=== PATIENT | male | born 1955 | race Caucasian/White ===

== ENCOUNTER → 2019-10-06 14:56 | Outpatient (BNVA) | payer MEDICARE, MEDICAID, SELFPAY | PROVIDERS: PCP Family Medicine; Referring Provider Family Medicine; Visit Provider Nurse Practitioner Gerontology | DX: N50.3 Cyst of epididymis (principal) | CPT/HCPCS: 99203; 99214 ==

== ENCOUNTER 2020-12-01 21:00 | Outpatient (REF) | payer MEDICARE, SELFPAY ==
[2020-12-03 14:06] LABS: COVID-19 RT-PCR UVMMC Result Negative (Negative)
== END 2020-12-01 21:01 | disposition home or self-care (01) ==
LOC: NCHCN 21:00
PROVIDERS: PCP Family Medicine; Visit Provider Family Medicine
DX: Z20.822 Contact with and (suspected) exposure to COVID-19 (principal); R05 Cough
CPT/HCPCS: U0003

== ENCOUNTER 2021-03-30 02:59 | Outpatient (CLI) | payer MEDICARE, MEDICAID, SELFPAY ==
--- NOTE | 2021-03-30 08:30 | DI.MRI_ITS ---
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 TECHNIQUE: Multiplanar multisequence MRI of the Lumbar spine was performed. COMPARISON: CR LUMBAR SPINE COMPLETE from 01/09/2013 FINDINGS: X-rays 01/09/2013 were reviewed. There are no more recent radiographs of the lumbar spine available time this MRI interpretation. Conus medullaris is at normal level. There is no evidence of conus mass nor subjacent clumping of in trathecal nerve roots to suggest arachnoiditis. The distal thecal sac and slightly higher than typic al; in this patient the distal thecal sac and XXXX at the L5-S1 level. There is no evidence of Tarlo v intra sacral cysts within the sacral canal. Bones:There is a prominent area of concerning signal abnormality in the right side of upper sacrum in volving S1 and S2 levels, concerning for neoplastic disease T1 hypointense and bright on STIR images. This some is not associated with extension into the presacral tissues nor obvious encroachment upon the sacral canal at this time. This is contiguous with the right sacroiliac joint. In addition, th ere are other smaller foci of concerning signal abnormality in the pelvis, specifically in the left i liac bone, these also suspicious (but smaller). There is also Schmorl's node invagination in the superior endplate of L3, anteriorly. This exhibits some surrounding bone edema. With respect to the individual disc levels... T12-L1: Unremarkable L1-2: Normal disc height and signal. No disc herniation nor central canal stenosis.No foraminal steno sis L2-3: Normal disc height. No disc herniation nor central canal stenosis.No foraminal stenosis.No face t arthropathy. L3-4: Normal disc height. No disc herniation or central canal stenosis.No foraminal stenosis.No face t arthropathy. L4-5: Normal disc height and signal. No significant disc herniation or central spinal canal stenosis . No foraminal stenosis. No obvious degenerative changes in the facet joints L5-S1: Moderate decreased disc height and signal. Modic type 2 sub endplate fatty marrow changes on both sides of this disc space. There is posterior annular bulging at this level, extending into the floor of the exiting neural fora kaye bilaterally, more so on left side. There is mild left-sided foraminal stenosis due to the verti yobany height loss of the disc, Peck bulging into the floor of the exiting neural foramen and moderat e degenerative changes in the ipsilateral left facet joint. On the right side of this disc space the re is no significant foraminal stenosis and less degenerative change in the right facet joint. Soft tissues: paraspinal soft tissues appear unremarkable. IMPRESSION: 1. Main findings here are in the right-side of the sacrum where there is a prominent area of relativ quentin well-defined signal abnormality measuring approximately 3.7 cm wide by 3.7 cm craniocaudal by 4 c m AP, this at the S1 and S2 levels and suspicious for neoplastic disease. There also smaller lesions in the left hemipelvis which are also suspicious, these exhibiting average size of 1.3 cm. 2. Intervertebral disc space findings at L5-S1 level as described above. DATA REPOSITORY:
== END 2021-03-30 03:19 ==
PROVIDERS: PCP Family Medicine; Visit Provider Family Medicine
DX: M54.31 Sciatica, right side (principal)
CPT/HCPCS: 72148

== ENCOUNTER 2021-04-12 01:39 | Outpatient (CLI) | payer MEDICARE, MEDICAID, SELFPAY ==
[2021-04-12 08:45] LABS: Abs Immature Grans 0.08 10^3/uL (0.0-0.06); Absolute Basophil Count 0.02 10^3/uL (0.0-0.2); Absolute Eosinophil Count 0.11 10^3/uL (0.0-0.7); Absolute Monocyte Count 1.03 10^3/uL (0.1-0.8); Absolute Neutrophil Count 7.25 10^3/uL (1.2-6.7); Basophils % 0.2; Eosinophils % 1.1; HCT 45.7 % (40.0-50.0); HGB 14.6 g/dL (13.5-17.5); Immature Grans % 0.8; Lymphocytes % 13.3; MCH 29.1 pg (27.0-33.0); MCHC 31.9 % (32.0-36.0); Monocytes % 10.5; Neutrophils % 74.1; Nucleated RBC 0 %; Platelet Count 204 10^3/uL (130-400); RBC 5.02 10^6/uL (4.36-5.78); RDW 13.4 % (11.8-14.1); RDW-SD 45.1 fL; WBC 9.79 10^3/uL (4.4-10.8)
[2021-04-12 09:01] LABS: ALT 24 U/L (16-63); AST 11 U/L (15-37); Albumin 4.1 g/dL (3.4-5.0); Alkaline Phosphatase 107 U/L (46-116); Anion Gap 11.1 mmol/L (3-11); BUN 20 mg/dL (7-18); Bilirubin, Total 0.5 mg/dL (0.2-1.0); CO2 24.9 mmol/L (21.0-32.0); CREATININE 1.1 mg/dL (0.70-1.30); Chloride 105 mmol/L (98-107); Glucose 99 mg/dL (74-106); Potassium 4.3 mmol/L (3.5-5.1); Sodium 141 mmol/L (136-145); Total Protein 7.9 g/dL (6.4-8.2)
[2021-04-12] MEDS: Normal Saline - Diluent 50 ML VIAL IV (10:03)
[2021-04-12] MEDS: Omnipaque 350 MG/ML 100 ML BTL IJ (10:13)
--- NOTE | 2021-04-12 10:15 | DI.CT_ITS ---
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 TECHNIQUE: Imaging Protocol: Axial computed tomography images with coronal and sagittal reformatted images were created and reviewed CONTRAST MATERIAL: Intravenous: Omnipaque 350 Contrast volume:100 ml Oral: Yes COMPARISON: No exams were available for comparison FINDINGS: CHEST: LUNGS: There is a very large mass in the right upper lobe and mediastinum with significant involvemen t of the right mainstem bronchus and this mass extends caudally into the right lower lobe and with mu ltiple additional lesions in the right lower lobe, the largest of these measuring 3 by 2.5 cm. This large mass extends outward from the right hilum to the pleural surface where it is intimately related to the chest wall but not associated with obvious rib destruction nor pleural effusion. There are m ultiple small probable metastatic nodules in the opposite-left lung, these measuring up to 9 millimet er diameter. No pleural effusions seen on either side. The left mainstem bronchus is patent. MEDIASTINUM: There is extensive contiguous involvement of the right hilum and right side of the media stinum with extension into and extensive adenopathy in the subcarinal region. Also involvement of sherron th right and left paratracheal regions and also contiguous involvement of the aortopulmonic window. Anterior mediastinal retrosternal fat is clear. There is no supraclavicular nor axillary adenopathy. CARDIAC: Heart size is normal. There is a small pericardial effusion. Maximum thickness is 1 cm.Johnathon iber of the thoracic aorta is within normal limits. OSSEOUS: There is no rib destruction.However, there appears to be involvement of T2 vertebral body. No spinal canal involvement.. ABDOMEN: There is no ascites. LIVER: There are few small benign-appearing hypodensities in the liver, the largest measuring 5 maryellen meters. These have more the appearance of benign cysts than metastatic lesions. There is no dilatat ion of intrahepatic ducts. GALLBLADDER/BILIARY: No obvious gallbladder pathology. CBD is not dilated. PANCREAS: No evidence of pancreatic mass nor dilatation of the pancreatic duct. SPLEEN: Spleen is not enlarged. There are no intrasplenic lesions. Splenic and portal veins are gibbs nt. ADRENALS: There is a mass in the left adrenal gland which measures 2.3 by 1.8 cm. Smaller nodule is seen at the genu of the opposite-right adrenal gland measuring 10 x 9 millimeters. These findings ar e suspicious for metastatic disease given the findings in the chest. KIDNEYS: No calculi nor hydronephrosis. No solid renal masses. No cysts evident. ABDOMINAL AORTA: Calcified but not enlarged. LYMPH NODES: There is no retroperitoneal nor paraaortic adenopathy. ABDOMINAL WALL: No evidence of significant anterior abdominal wall hernia. GI: There is no evidence of bowel obstruction. PELVIS: LYMPH NODES: There is no intrapelvic nor inguinal adenopathy. GI: No evidence of appendicitis.No evidence of sigmoid diverticulitis. URINARY BLADDER: No calculi nor masses evident REPRODUCTIVE: Prostate gland mildly enlarged and calcified. No obturator adenopathy. OSSEOUS: There is a lytic mass involving the right side of the sacrum. There is cortical disruption by this malignant mass with some extension into the right side of the sacral canal. There does not appear to be involvement of lumbar vertebral bodies. IMPRESSION: 1. There is a very large malignant appearing mass in the right lung extending from the hilum-mediasti num out to the right upper lobe pleural surface and with contiguous involvement of the mediastinum an d subcarinal region as described above; extending across the mediastinum to the aortopulmonic window on the left side. Mass occupies a large part of the right mainstem bronchus which is probably origin site. There also other spiculated masses in the right lung as described above and there also smalle r non spiculated sub cm nodules in both lungs.. There are no pleural effusions. 2. There is a 2.3 x 1.8 cm mass in the left adrenal gland which is probably metastatic, given the fin dings in the chest a smaller nodule is seen in the opposite-right adrenal gland. 3. There is a small pericardial effusion. Maximum thickness 9-10 millimeters. Heart size itself is normal. 4. There is a large lytic mass in the right side of the sacrum with breech of the cortex and involvem ent of the right-side of the sacral canal. There also appears to be metastatic involvement of the T2 vertebral body, but without involvement of the spinal canal at this level at this time RADIATION DOSE DELIVERED: 1,583.83mGy.cm Total DLP DATA REPOSITORY: All CT scans at this facility are submitted to the National Radiology Data Registry (NRDR) Dose Index Registry (DIR) with the [employer] (A[employer]). RADIATION OPTIMIZATION: All CT scans at this facility use at least one of these dose optimization te chniques: automated exposure control; mA and/or kV adjustment per patient size (includes targeted exa ms where dose is matched to clinical indication); or iterative reconstruction.
[2021-04-12 16:44] LABS: PSA, Diagnostic 5.9 ng/mL (0.0-4.5)
[2021-04-12 19:55] LABS: Calculated LDL 123 mg/dL (<100); Cholesterol 186 mg/dL (<200); HDL Cholesterol 32 mg/dL (40-60); Triglyceride 157 mg/dL (<150)
== END 2021-04-12 01:59 ==
PROVIDERS: PCP Family Medicine; Visit Provider Family Medicine
DX: Z01.812 Encounter for preprocedural laboratory examination (principal); D48.9 Neoplasm of uncertain behavior, unspecified; N40.0 Benign prostatic hyperplasia without lower urinary tract symptoms; R91.8 Other nonspecific abnormal finding of lung field; E27.8 Other specified disorders of adrenal gland; I31.3 Pericardial effusion (noninflammatory); M53.3 Sacrococcygeal disorders, not elsewhere classified
CPT/HCPCS: 74177; 80053; 80061; 71260; 82565; 84153; 85025; J3490

== ENCOUNTER 2021-04-13 12:32 | Emergency (ER) | payer MEDICARE, MEDICAID, SELFPAY ==
[2021-04-13] VITALS (47 sets, daily range): BP systolic 91–178; BP diastolic 52–124; PULSE 80–124; RESP 16–39; TEMP 36.4; O2SAT 90–100
--- NOTE | 2021-04-13 12:45 | RT.EKG_ITS ---
APPROVED REPORT Exam: Resting ECG Reason for Exam: sob Patient Location: E HR:114 bpm ECG Measurements Heart Rate 114 AXIS OK 173 P 55 QRSd 82 QRS 12 QT 330 T 36 QTc 454 Conclusion Sinus tachycardia...rate> 99 Probable left atrial enlargement...P >50mS, <-0.10mV V1. No STEMI. I have reviewed and interpreted ECG and agree with software generated interpretation.
--- NOTE | 2021-04-13 12:45 | DI.RAD_ITS ---
Exam(s) XR PORTABLE CHEST AP EXAM: XR PORTABLE CHEST AP CLINICAL HISTORY: hemoptysis. TECHNIQUE: 2D digital imaging was performed. COMPARISON: CT CT CHEST/ABD/PEL W from 04/12/2021 FINDINGS: Heart size is upper normal. Please note the yesterday's CT scan revealed a small pericardial effusio n, in addition to other abnormal findings. There is a large mass in the right upper lobe which corresponds to the large mass seen on yesterday's chest x-ray. Also other densities lower down in the right lung. No pleural effusion. No pneumotho rax. The opposite-left lung is clear with the exception of a small nodule behind the left side of th e heart which is within the posterior basal segment of the left lower lobe, as seen on yesterday's ch est CT scan. There is no pleural fluid on either side. IMPRESSION: Large malignant appearing right lung mass which extends from the mediastinum out to the pleural surfa ce. No associated pleural effusion or rib destruction. Please refer to yesterday's CT scan report DATA REPOSITORY: RADIATION DOSE DELIVERED: All CT scans at this facility use at least one of these dose optimization techniques: automated exposure control; mA and/or kV adjustment per patient size (includes targeted e xams where dose is matched to clinical indication); or iterative reconstruction.
[2021-04-13] MEDS: Normal Saline 1,000 ML 1000 ML IV (12:50)
[2021-04-13 13:06] LABS: Abs Immature Grans 0.13 10^3/uL (0.0-0.06); Absolute Basophil Count 0.03 10^3/uL (0.0-0.2); Absolute Eosinophil Count 0.08 10^3/uL (0.0-0.7); Absolute Lymphocyte Count 1.46 10^3/uL (1.2-3.4); Absolute Monocyte Count 1.09 10^3/uL (0.1-0.8); Absolute Neutrophil Count 10.39 10^3/uL (1.2-6.7); Basophils % 0.2; Eosinophils % 0.6; HCT 45.5 % (40.0-50.0); HGB 14.9 g/dL (13.5-17.5); Lymphocytes % 11.1; MCH 29.6 pg (27.0-33.0); MCHC 32.7 % (32.0-36.0); MCV 90.3 fL (80-95); Monocytes % 8.3; Neutrophils % 78.8; Nucleated RBC 0 %; Platelet Count 256 10^3/uL (130-400); RBC 5.04 10^6/uL (4.36-5.78); RDW 13.4 % (11.8-14.1); RDW-SD 44.4 fL; WBC 13.19 10^3/uL (4.4-10.8)
[2021-04-13 13:17] LABS: Prothrombin Time 10.5 sec (9.3-11.0)
[2021-04-13 13:26] LABS: ALT 25 U/L (16-63); AST 9 U/L (15-37); Albumin 4.1 g/dL (3.4-5.0); Alkaline Phosphatase 113 U/L (46-116); Anion Gap 14.5 mmol/L (3-11); BUN 17 mg/dL (7-18); Bilirubin, Total 0.6 mg/dL (0.2-1.0); CO2 22.5 mmol/L (21.0-32.0); CREATININE 0.9 mg/dL (0.70-1.30); Calcium 9.8 mg/dL (8.5-10.1); Chloride 101 mmol/L (98-107); Glucose 105 mg/dL (74-106); NT-proBNP 59 pg/mL (<300); Potassium 4.2 mmol/L (3.5-5.1); Sodium 138 mmol/L (136-145); Total Protein 7.9 g/dL (6.4-8.2); Troponin I < 0.05 ng/mL (<0.06)
--- NOTE | 2021-04-13 15:15 | ED.GENADUL_ITS ---
Discharge Plan Discharge Details Chief Complaint: GenMedical Primary Care Provider: Rossana Grossman ED Provider: Arminda Jasmine Home Meds and New Rx's Prescriptions: No Action oxycodone 15 mg tablet 15 mg PO TID PRN PRNRF: 0 diclofenac sodium 50 mg tablet,delayed release (DR/EC) 50 mg PO TID RF: 0 tramadol 50 mg tablet 100 mg PO BID RF: 0 albuterol sulfate 90 mcg/actuation HFA aerosol inhaler 2 inh INHALATION Q4H PRN PRNRF: 0 cyclobenzaprine 10 mg tablet 10 mg PO TID PRN PRNRF: 0 Flovent HFA 110 mcg/actuation Hfa Aerosol Inhaler 2 puff INHALATION BID RF: 0 Discharge Data Discharge Date/Time-TO BE ENTERED AT DEPARTURE: 04/13/21 17:16 Medical Decision Making <DANNA Chi - Last Filed: 04/14/21 20:52> Patient experiencing hemoptysis with a large mediastinal mass in the right bronchus Initially in respiratory distress with pulse 122, oxygen saturation 89%, tachypneic between 38 and 40 Initiated TXA, patient received 500 and an additional 500 Hemoptysis with mildly improved Chest x-ray with discussed with radiologist, Dr. Mei there is no evidence of pneumothorax, CT scans from yesterday were reviewed with large mediastinal mass radiology interpretation Patient received 1 L of normal saline, after respiratory consultation, patient received 2 mg of morphine which patient actually tolerated well and subsequent dose of 3 mg of nebulized morphine which significantly improved patient's symptoms Long discussion with patient's daughter and sister in room and patient would like to be DNR/DNI status He is alert, oriented, of decisional capacity at time of this evaluation and daughter and sister were both in room Case was discussed with initially [facility] who is unable to accept this patient in transfer Case was then discussed with DDM, Dr. Kramer pulmonology who has accepted patient in transfer Patient received a total of milligram of nebulized morphine and 2 mg of IV morphine, his breathing has improved He received a total of 1 g of TXA Initially patient was listed as being on aspirin however after his medication were reconciled, he is not reportedly taking baby aspirin and therefore desmopressin was held Patient received bed notification at approximately 1500 and EMS will be called to transport patient I did consider pulmonary embolism pneumothorax, however radiologist did not see obvious pneumothorax on chest x-ray Patient also had a CT scan with contrast yesterday, no evidence of large PE with good opacification after reviewing the films with our radiologist welder explosion today Hemoglobin and hematocrit are reassuringly normal I did consider Covid, however patient is vaccinated and he denies any exposures recently signed out to Arminda Jasmine pending transfer [facility] Medical Records Medical records reviewed: Yes I reviewed the patient's medical records. Lab Data Lab results reviewed: Yes I reviewed the patient's lab results. ECG Data Prior ECG tracings: available for review <Arminda Jasmine - Last Filed: 04/13/21 17:47> 1619: Care assumed from provider (DANNA Chi) please see her initial HPI, and PE, discussed patient details and case and pending workup and disposition. Patient is hemodynamically stable, and alert and oriented. Awaiting transfer to [facility]. At this time patient denying pain family at bedside. He has no complaints she just finished a nebulized morphine does 3 mg proximally 35 minutes ago. I did verify with pain medicine that they are able to review and nebulized morphine dose that patient needed. This seems to improve his pain more than the IV dose. 1700: EMS here for transport patient remained hemodynamically stable alert and oriented throughout the remainder stay. HPI <DANNA Chi - Last Filed: 04/14/21 20:52> HPI physical exam General Mode of arrival: ambulatory . Date/Time Provider Initiated Documentation: 04/13/21 12:38 . Limitations to Documentation: no limitations . Information obtained by: patient . HPI Narrative: This 65-year-old gentleman with past medical history of COPD and tobacco use with recent diagnosis of large mediastinal mass presents with hemoptysis. He states he had some intermittent hemoptysis for the past month. He today states that today he has had approximately 8 episodes of hemoptysis that were approximately 1 tablespoon with clots. He states he feels lightheaded and weak. He denies any chest pain. He does state that he feels short of breath. He denies history of anticoagulation or+ Related Data Home Medications Medication Instructions Recorded Confirmed albuterol sulfate 2 inh INHALATION Q4H PRN PRN 04/13/21 04/13/21 cyclobenzaprine 10 mg PO TID PRN PRN 04/13/21 04/13/21 diclofenac sodium 50 mg PO TID 04/13/21 04/13/21 fluticasone propionate [Flovent 2 puff INHALATION BID 04/13/21 04/13/21 HFA] oxycodone 15 mg PO TID PRN PRN 04/13/21 04/13/21 tramadol 100 mg PO BID 04/13/21 04/13/21 Allergies Allergy/AdvReac Type Severity Reaction Status Date / Time codeine AdvReac Unknown SEVERE Unverified 04/13/21 12:50 ABDOMINAL PAIN General Stated Complaint: GenMedical RICCI: 2 <Arminda Jasmine - Last Filed: 04/13/21 17:47> HPI physical exam Review of Systems <DANNA Chi - Last Filed: 04/14/21 20:52> All systems reviewed & are unremarkable except as noted in HPI and below PFSH <DANNA Chi - Last Filed: 04/14/21 20:52> Medical History (Updated 08/05/19 @ 09:41 by Elizabeth Macdonald) BPH (benign prostatic hyperplasia) Cyst Depression Irritable bowel syndrome with diarrhea Osteoarthritis Teeth missing Tubular adenoma of colon Surgical History (Updated 08/01/16 @ 09:08 by Ofe Garcia) Colonoscopy - IV Sedation (07/27/16) Family History Mother No problems noted. Father No problems noted. Sister No problems noted. Sister No problems noted. Sister Personal history of malignant neoplasm Sister No problems noted. Brother No problems noted. Brother Personal history of malignant neoplasm Brother No problems noted. Brother No problems noted. Brother No problems noted. Son No problems noted. Social History Smoking/Tobacco Use Status: Former Tobacco Use Smoking risk assessment performed?: Yes Alcohol Intake: former Drug use: Never Do you feel safe at home: Yes Do you feel safe in your relationship?: Yes Exam <DANNA Chi - Last Filed: 04/14/21 20:52> Const General: cooperative and ill appearing HENMT Throat: uvula midline Other: Blood noted in oropharynx, maintaining secretions Eyes Sclera: sclerae normal Neck Other: No stridor Resp Auscultation: diminished lung sounds Other: Tachypnea, rhonchi Cardio Rate: tachycardic Rhythm: regular rhythm GI Inspection: normal to inspection Skin General skin exam: no rashes or lesions noted and no pallor Neuro General: patient alert and patient oriented x3 Extrem Other: distal pulses intact Course <DANNA Chi - Last Filed: 04/14/21 20:52> Vital Signs Vital signs: Vital Signs Temperature 36.4 C L 04/13/21 12:37 Pulse 122 H 04/13/21 12:37 Respiratory Rate 29 H 04/13/21 12:37 Blood Pressure 178/76 H 04/13/21 12:37 Pulse Oximetry 92 04/13/21 12:37 Temperature 36.4 C L 04/13/21 12:37 Temperature Source Temporal Artery Scan 04/13/21 12:37 Pulse 122 H 04/13/21 12:37 Pulse 117 H 04/13/21 13:20 Respiratory Rate 30 H 04/13/21 14:08 Respiratory Effort 04/13/21 14:08 Respiratory Depth Normal 04/13/21 14:08 Respiratory Pattern Normal 04/13/21 14:08 Blood Pressure 178/76 H 04/13/21 12:37 Blood Pressure Position Supine 04/13/21 12:37 Pulse Oximetry 93 04/13/21 13:20 Oxygen Delivery Method Nasal Cannula 04/13/21 12:45 Oxygen Flow Rate 2 04/13/21 12:45 Pain Level 0 04/13/21 12:37 Lab/Test Results Lab/Test Results: Laboratory Tests Range/Units 04/13/21 04/13/21 04/13/21 12:50 12:50 12:50 WBC (4.4-10.8) 10^3/uL RBC (4.36-5.78) 10^6/uL Hgb (13.5-17.5) g/dL Hct (40.0-50.0) % MCV (80-95) fL MCH (27.0-33.0) pg MCHC (32.0-36.0) % RDW (11.8-14.1) % Plt Count (130-400) 10^3/uL MPV (8.0-11.0) fL Immature Gran % Neutrophils % Lymphocytes % Monocytes % Eosinophils % Basophils % Nucleated RBC % % Absolute Neutrophils (1.2-6.7) 10^3/uL Absolute Lymphocytes (1.2-3.4) 10^3/uL Absolute Monocytes (0.1-0.8) 10^3/uL Absolute Eosinophils (0.0-0.7) 10^3/uL Absolute Basophils (0.0-0.2) 10^3/uL PT (9.3-11.0) sec 10.5 INR (0.9-1.1) 1.0 Sodium (136-145) mmol/L 138 Potassium (3.5-5.1) mmol/L 4.2 Chloride (98-107) mmol/L 101 Carbon Dioxide (21.0-32.0) mmol/L 22.5 Anion Gap (3-11) mmol/L 14.5 H BUN (7-18) mg/dL 17 Creatinine (0.70-1.30) mg/dL 0.9 Estimated GFR/1.73 m2 (mL/min/1.73m2) >= 60.00 Glucose (74-106) mg/dL 105 Calcium (8.5-10.1) mg/dL 9.8 Total Bilirubin (0.2-1.0) mg/dL 0.6 AST (15-37) U/L 9 L ALT (16-63) U/L 25 Alkaline Phosphatase (46-116) U/L 113 Troponin I (<0.06) ng/mL < 0.05 NT-Pro-B Natriuret Pep (<300) pg/mL 59 Total Protein (6.4-8.2) g/dL 7.9 Albumin (3.4-5.0) g/dL 4.1 Patient ABO/Rh A Negative Antibody Screen NEGATIVE Range/Units 04/13/21 12:50 WBC (4.4-10.8) 10^3/uL 13.19 H RBC (4.36-5.78) 10^6/uL 5.04 Hgb (13.5-17.5) g/dL 14.9 Hct (40.0-50.0) % 45.5 MCV (80-95) fL 90.3 MCH (27.0-33.0) pg 29.6 MCHC (32.0-36.0) % 32.7 RDW (11.8-14.1) % 13.4 Plt Count (130-400) 10^3/uL 256 MPV (8.0-11.0) fL 10.0 Immature Gran % 1.0 Neutrophils % 78.8 Lymphocytes % 11.1 Monocytes % 8.3 Eosinophils % 0.6 Basophils % 0.2 Nucleated RBC % % 0 Absolute Neutrophils (1.2-6.7) 10^3/uL 10.39 H Absolute Lymphocytes (1.2-3.4) 10^3/uL 1.46 Absolute Monocytes (0.1-0.8) 10^3/uL 1.09 H Absolute Eosinophils (0.0-0.7) 10^3/uL 0.08 Absolute Basophils (0.0-0.2) 10^3/uL 0.03 PT (9.3-11.0) sec INR (0.9-1.1) Sodium (136-145) mmol/L Potassium (3.5-5.1) mmol/L Chloride (98-107) mmol/L Carbon Dioxide (21.0-32.0) mmol/L Anion Gap (3-11) mmol/L BUN (7-18) mg/dL Creatinine (0.70-1.30) mg/dL Estimated GFR/1.73 m2 (mL/min/1.73m2) Glucose (74-106) mg/dL Calcium (8.5-10.1) mg/dL Total Bilirubin (0.2-1.0) mg/dL AST (15-37) U/L ALT (16-63) U/L Alkaline Phosphatase (46-116) U/L Troponin I (<0.06) ng/mL NT-Pro-B Natriuret Pep (<300) pg/mL Total Protein (6.4-8.2) g/dL Albumin (3.4-5.0) g/dL Patient ABO/Rh Antibody Screen Critical Care Time <DANNA Chi - Last Filed: 04/14/21 20:52> Critical Care Time Critical Care Time: Yes Total Critical Care Time: 60 Attestation: Telemetry monitoring, IV fluids, TXA, nebulized morphine, transfer to [facility] Sign Out <DANNA Chi - Last Filed: 04/14/21 20:52> Sign Out Data: Sign Out Comment: pending [facility] transfer Last updated by Di Garnica PA at 04/13/21 16:16
[2021-04-13] MEDS: Ondansetron 4 MG/2 ML VIAL IVP (15:48)
--- NOTE | 2021-04-13 16:58 | NUR.NOTE ---
txa given as nebulizer in 2 doses. Nursing Note:
== END 2021-04-13 17:16 ==
PROVIDERS: Physician Assistant; Emergency Provider Registered Nurse Emergency; PCP Family Medicine
DX: R04.2 Hemoptysis (principal); R06.03 Acute respiratory distress
CPT/HCPCS: 36415; 80053; 86850; 86900; 86901; 93005; 96361; 96365; 96366; 96375; 96376; 99291; 71045; 83880; 84484; 85025; 85610; 93010; J2405; J2597

== ENCOUNTER 2021-05-02 17:59 | Inpatient (IN) | payer MEDICARE, MEDICAID, SELFPAY ==
[2021-05-02] VITALS (35 sets, daily range): BP systolic 89–117; BP diastolic 44–71; PULSE 121–146; RESP 4–44; TEMP 36.8–36.9; O2SAT 92–98
--- NOTE | 2021-05-02 18:00 | RT.EKG_ITS ---
APPROVED REPORT Exam: Resting ECG Reason for Exam: increased difficulty breathing Patient Location: E HR:135 bpm ECG Measurements Heart Rate 135 AXIS VA 146 P 64 QRSd 77 QRS 28 QT 296 T 14 QTc 444 Conclusion Sinus tachycardia...rate> 99 Probable left atrial enlargement...P >50mS, <-0.10mV V1
--- NOTE | 2021-05-02 18:00 | DI.RAD_ITS ---
Exam(s) XR PORTABLE CHEST AP EXAM: XR PORTABLE CHEST AP CLINICAL HISTORY: SOB. TECHNIQUE: 2D digital imaging was performed. COMPARISON: CR XR CHEST PORTABLE 1 VIEW from 04/24/2021 FINDINGS: Heart size is unchanged. Left lung remains clear. There is persistent infiltrate in the right lower lobe and right upper lobe and volume loss in the right upper lobe noted. . No pleural effusions. No pneumothorax. IMPRESSION: Volume loss and opacification right upper lobe suspicious for central neoplasm. Chest CT scan recomm ended. There is also infiltrate in the right lung base.Left lung appears clear. There are no pleural effusions. DATA REPOSITORY: RADIATION DOSE DELIVERED: All CT scans at this facility use at least one of these dose optimization techniques: automated exposure control; mA and/or kV adjustment per patient size (includes targeted e xams where dose is matched to clinical indication); or iterative reconstruction.
--- NOTE | 2021-05-02 18:08 | W.ED.GENAD ---
Discharge Plan Disposition Patient Disposition: [facility] INPATIENT Condition: Serious Discharge Details Chief Complaint: SOB Clinical Impression: Metastatic lung cancer (metastasis from lung to other site), Hypoxia Admit Date/Time: 05/04/21 17:01 Admit Provider: Chadwick Vargas Attending Provider: Chadwick Vargas Primary Care Provider: Елена Silva ED Provider: Kriss Fields Discharge Data Discharge Date/Time-TO BE ENTERED AT DEPARTURE: 05/02/21 21:55 Medical Decision Making Patient is a pleasant 65 year old male, brought in via EMS, with c/c of SOB. He was d/c'ed from [facility] one week ago after being admitted and worked up for lung ca. He reports that since being sent home, his SOB has been increasing. Patients son CATHRYN Genao, is at bedside. They report that hge becomes profoundly SOB with minimal exertion. Home care nurse has noted him to be tachycardic in the. 120s and hypotensive with SBP in the 80s since arrival home last week per son's report. Patient has been using his albuteral nebulizer with minial improvement. No home O2. Has also had increasing pain, particularly in his feet. Has been using hydromorphone. States he is transferring PCPs currently. On exam, patient appears acute on chronically ill. His is tachypneic, pursed lipped breathing and needing to be in upright position. Good air movement on the left side but minimal air movement in RUL and no air in RLL. No crepitus. Abdomen is benign. He has 2+ distal pulses in all extremities. Patient requiring 2L NC. Tachycardic at 130, BP soft. Mentating well, protecting his airway Will request d/c summary from [facility]. Considered worsening SOB as result of PE, worsening tumor burden, ACS, infectious etiology vs. other. Will obtain baseline labs, CTA, ECG. He is not wheezing, I do not htink he will benefit from further nebulizer treatment. This will likely only increase his HR. He appears dehydrated, concerned this is worsening his hypotension and tachycardia. Will give IV fluids. Concerned tachycardia is compensatory and will hold off on aggressive treatment. Also considered pneumothorax, will obtain bedside XR. CXR reviewed by radiologist: FINDINGS: Lungs: Similar volume loss and diffuse opacification of the right upper lung zone suspicious for lung collapse. The right lower lung zone and left lung are unremarkable. Pleural spaces: Unremarkable. No pleural effusion. No pneumothorax. Heart/Mediastinum: Unremarkable. No cardiomegaly. Bones/joints: Unremarkable. IMPRESSION: Similar volume loss and diffuse opacification of the right upper lung zone suspicious for lung collapse. Overall, stable appearance of the chest. Labs reviewed. WBC of. 18. He has had no fevers, unclear if he has new infection vs. stress of cancer burden. D-dimer elevated at 709, will obtain CTA. Troponin WNL. Discussed my concerns with patient and family. They are primarily concerned with quality of life. They would like to be able to go home as soon as possible. However, they recognize that his SOB is very uncomfortable. Patient responding well to NC. Son is concerned that his father has not been eating in > 1 wk. He denies much fluid intact. Patient reports that he gets nauseated with any PO intake. Denies difficulty swallowing or abdominal pain. CT reviewed by radiologist: FINDINGS: Pulmonary arteries: Normal. No pulmonary emboli. Aorta: Unremarkable. No aortic aneurysm. No aortic dissection. Lungs: Similar appearance of large lung mass centered within the right hilum and involving the right upper lobe, right middle lobe and right lower lobe. Interval worsening of the external compression of the right central airways and increasing peribronchovascular masslike consolidation of the right lower lobe, may explain the worsening shortness of breath. Numerous parenchymal lung nodules throughout the left lung again noted, compatible with metastatic lesions. There are new ill-defined ground-glass opacities and increased interstitial pulmonary markings within the left lower lobe raises suspicious for lymphangitic spread of tumor. Pleural spaces: Interval development of a small right pleural effusion. Heart: Unremarkable. No cardiomegaly. No pericardial effusion. Lymph nodes: Unremarkable. No enlarged lymph nodes. Bones/joints: Multiple small sclerotic lesions throughout the thoracic spine and heterogeneous diffuse sclerosis of the T2 vertebral body compatible with osseous metastatic disease, unchanged. No acute fracture. Soft tissues: Unremarkable. IMPRESSION: 1. Large right hilar lung mass involving the right upper lobe, right middle lobe and right lower lobe is similar. However, there is worsening of the external compression of the right central airways and new peribronchovascular masslike consolidation of the right lower lobe, may explain the worsening shortness of breath. 2. Numerous parenchymal lung nodules throughout the left lung again noted, compatible with metastatic lesions. There are new ill-defined ground-glass opacities and increased interstitial pulmonary markings within the left lower lobe raises suspicious for lymphangitic spread of tumor. 3. Interval development of a small right pleural effusion. 4. Stable multiple small sclerotic lesions throughout the thoracic spine and heterogeneous diffuse sclerosis of the T2 vertebral body compatible with osseous metastatic disease. Discussed the findings with the patient and his son. They relay that at this time their goal is comfort. Patient wants to be at home with his family and able to participate in advance of his grandsons. He is currently requiring O2 and will need inpatient admission. Consulted with hospitalist who agrees to admission. Patient in agreement with this plan with hopes that he can go home soon with home O2. Has appointment with oncology on Saturday. HPI General Mode of arrival: EMS. Date/Time Provider Initiated Documentation: 05/02/21 18:16. Limitations to Documentation: no limitations. Information obtained by: patient, family (sister and son), EMS, RN notes reviewed and old records reviewed. History of Present Illness 65 year old M presents to the emergency department with the chief complaint of SOB, described as severe, Quality is described as other (pain unrelated in SOB. Chronic BLE pain), and is localized to the chest. Patient started experiencing this week(s) and it has been constant. Rest improves symptom(s), Movement worsens symptoms . Patient notes cough, loss of appetite, nausea/vomiting, shortness of breath and weakness (generalized); denies chest pain, diaphoresis, fever/chills, headaches, rash and syncope. Patient did receive the following treatments prior to arrival, other (nebulizer, no improvement) Related Data Home Medications Medication Instructions Recorded Confirmed albuterol sulfate 2 inh INHALATION Q6H PRN PRN 04/13/21 05/02/21 fluticasone propionate [Flovent 2 puff INHALATION BID 04/13/21 05/02/21 HFA] acetaminophen 500 mg PO PRN PRN 05/02/21 05/02/21 albuterol sulfate 2.5 mg INHALATION Q4H PRN PRN 05/02/21 05/02/21 dronabinol 2.5 mg PO BIDWMEAL 05/02/21 05/02/21 hydromorphone 2 mg PO QID 05/02/21 05/02/21 pantoprazole 40 mg PO DAILY 05/02/21 05/02/21 Allergies Allergy/AdvReac Type Severity Reaction Status Date / Time codeine AdvReac Unknown SEVERE Unverified 05/02/21 18:17 ABDOMINAL PAIN General RICCI: 2 Review of Systems Constitutional Constitutional: Reports as per HPI, Denies chills, Denies fever(s), Denies headache(s), Reports lethargy, Reports malaise, Reports poor appetite, Reports weakness and Reports weight loss Eyes Eyes: Denies change in vision ENT Ears, Nose, Mouth, and Throat: Denies dizziness and Denies headache(s) Cardiovascular Cardiovascular: Reports as per HPI, Reports dyspnea and Reports dyspnea on exertion Respiratory Respiratory: Reports as per HPI, Denies chest congestion, Denies cough, Denies pain on inspiration, Denies pain with cough, Reports dyspnea, Reports dyspnea on exertion and Denies wheezing Gastrointestinal Gastrointestinal: Reports as per HPI, Denies abdominal pain, Denies diarrhea and Reports nausea Genitourinary Genitourinary: Denies system reviewed and no additional complaints, except as documented (denies change in urinary habits) Musculoskeletal Musculoskeletal: Reports as per HPI and Denies back pain Integumentary/Breasts Skin/Breast: Reports as per HPI and Denies rash Neurologic Neurologic: Reports as per HPI, Denies dizziness, Denies headache(s) and Reports weakness Allergic/Immunologic Allergic/Immunologic: Denies wheezing [facility] Medical History (Updated 05/04/21 @ 23:34 by DANNA Arroyo) BPH (benign prostatic hyperplasia) Cyst Depression Irritable bowel syndrome with diarrhea Lung cancer Metastatic lung cancer (metastasis from lung to other site) Osteoarthritis Teeth missing Tubular adenoma of colon Surgical History (Updated 04/28/21 @ 14:34 by Keisha Houston) Colonoscopy - IV Sedation (07/27/16) History of Oswaldo fundoplication (02/08/16) Family History Mother No problems noted. Father No problems noted. Sister No problems noted. Sister No problems noted. Sister Personal history of malignant neoplasm Sister No problems noted. Brother No problems noted. Brother Personal history of malignant neoplasm Brother No problems noted. Brother No problems noted. Brother No problems noted. Son No problems noted. Social History (Updated 05/03/21 @ 13:26 by Kelly Casillas) Smoking/Tobacco Use Status: Former Tobacco Use tobacco type: cigarettes Second Hand Exposure: Yes Smoking risk assessment performed?: Yes Alcohol Intake: former Drug use: Never Substance use type: does not use Household members: family Housing: house Do you need help understanding health information?: Always Pets and animals: Yes Pets and animals: cat(s) Sexually active: No Do you think of yourself as: straight/heterosexual Current gender identity: male What is your relationship status?: How often do you get together with friends or relatives?: never How often do you attend scientology or mandaeism services?: decline to answer Do you belong to any clubs or organized social groups?: yes Panel score (0-1 are the most socially isolated patients): 1 Special alejandra needs: No Seatbelt use: always Helmet use: No Drive intox or ride w/intox tow motor driver: No Do you feel safe at home: Yes Do you feel safe in your relationship?: Yes Exam Const General: cooperative, not healthy appearing, uncomfortable, no acute distress, well developed, in distress moderate and respiratory and anxious Nutritional Appearance: cachectic and thin Orientation: alert, awake and oriented x3 HENMT Head: normal to inspection Ears: hearing grossly normal bilaterally Mouth: mucous membranes dry (appears dry) Chest Chest: normal inspection of the chest, normal palpation of entire chest wall and no crepitus Resp Effort & Inspection: not able to speak in complete sentences, no cough, labored, nasal flaring, pursed lip breathing, respiratory distress, no stridor, tachypneic, no tracheal deviation and no tripod positioning Auscultation: breath sounds absent on the right, no rales, no rhonchi and no wheezes Cardio Rate: tachycardic Rhythm: regular rhythm Heart Sounds: S1 normal and S2 normal GI Inspection: normal to inspection, no edema and non-distended Palpation: soft, no hepatosplenomegaly, not firm, no guarding, not rigid and nontender Auscultation: normal bowel sounds Skin General skin exam: no rashes or lesions noted Trauma: no lacerations or abrasions Neuro General: patient alert, patient awake and patient oriented x3 Cognition: normal cognition Speech: speech normal Extrem General: normal to inspection, capillary refill normal, no pedal edema and no calf tenderness Psych Appearance: grossly normal and well kempt Mental Status: mental status grossly normal Speech and Movement: speech and movement normal
[2021-05-02] MEDS: Normal Saline 1,000 ML 1000 ML IV (18:14)
[2021-05-02 18:17] LABS: BE (Venous) 8 mmol/L (-2-3); HCO3 (Venous) 33 mmol/L (23-28); O2 Sat (Venous) 31 %; TCO2 (Venous) 29 mmol/L (24-29); pCO2 (Venous) 48 mmHg (41-51); pH (Venous) 7.44 (7.31-7.41); pO2 (Venous) 21 mmHg
[2021-05-02 18:18] LABS: Abs Immature Grans 0.14 10^3/uL (0.0-0.06); Absolute Eosinophil Count 0.04 10^3/uL (0.0-0.7); Absolute Monocyte Count 1.49 10^3/uL (0.1-0.8); Basophils % 0.2; Eosinophils % 0.2; HCT 41.4 % (40.0-50.0); HGB 13.4 g/dL (13.5-17.5); Immature Grans % 0.8; Lactate 1.5 mmol/L (0.6-1.4); MCH 29.1 pg (27.0-33.0); MCHC 32.4 % (32.0-36.0); MPV 10.6 fL (8.0-11.0); Monocytes % 8.1; Neutrophils % 88.7; Nucleated RBC 0 %; Platelet Count 162 10^3/uL (130-400); RDW 13.7 % (11.8-14.1); RDW-SD 44.6 fL; WBC 18.38 10^3/uL (4.4-10.8)
--- NOTE | 2021-05-02 18:19 | NUR.NOTE ---
Nursing Note: Request for last discharge summary, last oncology note to be faxed to [facility] ED. Spoke with Jerzy. Keisha Fox
[2021-05-02 18:20] LABS: Absolute Basophil Count 0.04 10^3/uL (0.0-0.2); Absolute Lymphocyte Count 0.37 10^3/uL (1.2-3.4)
[2021-05-02 18:31] LABS: PTT Activated 29.1 sec (21.0-27.5); Prothrombin Time 12.5 sec (9.3-11.0)
[2021-05-02 18:32] LABS: INR 1.2 (0.9-1.1)
[2021-05-02 18:40] LABS: ALT 43 U/L (16-63); AST 17 U/L (15-37); Albumin 2.7 g/dL (3.4-5.0); Alkaline Phosphatase 119 U/L (46-116); Anion Gap 7.1 mmol/L (3-11); BUN 11 mg/dL (7-18); Bilirubin, Total 0.7 mg/dL (0.2-1.0); CO2 30.9 mmol/L (21.0-32.0); CREATININE 0.9 mg/dL (0.70-1.30); Calcium 9.4 mg/dL (8.5-10.1); Chloride 96 mmol/L (98-107); Glucose 127 mg/dL (74-106); NT-proBNP 199 pg/mL (<300); Potassium 3.9 mmol/L (3.5-5.1); Sodium 134 mmol/L (136-145); Total Protein 7.1 g/dL (6.4-8.2)
[2021-05-02 18:47] LABS: Troponin I < 0.05 ng/mL (<0.06)
[2021-05-02 18:55] LABS: D-Dimer 709 ng/mlFEU (<500)
--- NOTE | 2021-05-02 19:04 | DI.VRAD_ITS ---
PROCEDURE INFORMATION: Exam: XR Chest Exam date and time: 05/02/2021 6:08 PM Age: 65 years old Clinical indication: Shortness of breath; Patient HX: SOB TECHNIQUE: Imaging protocol: XR of the chest. Views: 1 view. COMPARISON: CR XR PORTABLE CHEST AP 04/13/2021 1:07 PM FINDINGS: Lungs: Similar volume loss and diffuse opacification of the right upper lung zone suspicious for lung collapse. The right lower lung zone and left lung are unremarkable. Pleural spaces: Unremarkable. No pleural effusion. No pneumothorax. Heart/Mediastinum: Unremarkable. No cardiomegaly. Bones/joints: Unremarkable. IMPRESSION: Similar volume loss and diffuse opacification of the right upper lung zone suspicious for lung collapse. Overall, stable appearance of the chest. Dictated and Authenticated by: Hugo Trinidad MD. Ordering:MARGIE Monterroso MD
--- NOTE | 2021-05-02 19:23 | DI.CT_ITS ---
Exam(s) CT CHEST PE ABD PELVIS W EXAM: CT CHEST PE ABD PELVIS W CLINICAL HISTORY: increased SOB, abdoninal pain, nausea.. TECHNIQUE: Imaging Protocol: Axial CT angiography was performed with multi-slice acquisition and m ulti-planar and/or 3D reconstructions. CONTRAST MATERIAL: Intravenous: Omnipaque 350 Contrast volume:100 ml Oral: None COMPARISON: CT CT CHEST/ABD/PEL W from 04/12/2021 FINDINGS: CHEST: PULMONARY ARTERIES: There are no intra-arterial filling defects to suggest the presence of acute pulm onary emboli. LUNGS: Again noted is a very large mass in the right upper lobe, right middle lobe, and right lower l obe with additional lesions in the right lower lobe and this mass density in the right lower lobe has increased in size. there is also now a small right pleural effusion which was not previously presen t. Small metastatic nodules in the opposite-left lung are again noted. There is no pleural effusion on the left side. MEDIASTINUM: The extensive right hilar and mediastinal adenopathy is again noted and this is again no bhupinder to extend across the midline not only in the subcarinal region but pretracheal and into the aorto pulmonic window on the opposite-left side where there is also large jen mass, this mass extending i nto the anterior left mediastinal fat, similar to previous. CARDIAC: Heart size remains normal. Small pericardial effusion again noted. It appears to have shif tedhowever, does not appear to have significantly increased in size. The caliber of the thoracic aor ta is within normal limits. No dissection. OSSEOUS: No significant osseous lesions.. ABDOMEN: There is no ascites. LIVER: Small benign cyst or hemangioma in the left hepatic lobe is noted. There are no obvious metas tatic lesions in the liver. There is no dilatation of intrahepatic ducts. GALLBLADDER/BILIARY: No obvious gallbladder pathology. CBD is not dilated. PANCREAS: No evidence of pancreatic mass nor dilatation of the pancreatic duct. SPLEEN: Spleen is not enlarged. There are no intrasplenic lesions. Splenic and portal veins are gibbs nt. ADRENALS: The previously described nodule in the left adrenal gland is unchanged in size. It is prob ably metastatic given the findings in the chest. No obvious masses in the right adrenal gland noted. KIDNEYS:No cysts evident. No calculi nor hydronephrosis. No solid renal masses. ABDOMINAL AORTA: Abdominal aorta is not enlarged. LYMPH NODES: There is no retroperitoneal or para-aortic adenopathy. ABDOMINAL WALL/GI: No evidence of significant anterior abdominal wall hernia. No bowel obstruction. PELVIS: LYMPH NODES: There is no intrapelvic nor inguinal adenopathy. GI: No evidence of appendicitis.No evidence of sigmoid diverticulitis. URINARY BLADDER: No calculi nor masses evident REPRODUCTIVE: Prostate moderately enlarged. Contains calcifications. There is no obturator adenopat hy nor adenopathy elsewhere in the pelvis. OSSEOUS: Large lytic mass in the right side of the sacrum is again noted with cortical breach both me dially and laterally and extension into the right side of the sacral canal again noted. This also br eaches the sacral side of the right SI joint. There also sclerotic densities in the left side of the pelvis. Also others smaller sclerotic densiti es in a few vertebral bodies. T2 vertebral body again exhibits prominent sclerosis. T8 and T11 and T12 small sclerotic lesions noted. IMPRESSION: 1. Slight further deterioration in the extensive neoplastic findings in the right hemithorax includin g further increase in size of the smaller independent lesion in the right lower lobe and there is als o now a small unilateral right pleural effusion which was not evident on the prior study of 1. 2. Small metastatic nodules in the opposite-left lung are again noted.No pleural effusion on the left side 3. Extensive right hilar and through and through mediastinal adenopathy again noted including extensi ve involvement of the aortopulmonic window. There is relative sparing of the left hilum. 4. Small-moderate size pericardial effusion again noted. 5. Left adrenal nodule again noted which is probably metastatic given the findings in the chest. 6. Blastic osseous metastases again noted in vertebral bodies, most prominent in T2 vertebral body. There is also extensive lytic disease in the right side of the sacrum again noted with breech of the cortex extending into the right sacroiliac joint and medially into the right side of the sacral kalia l. RADIATION DOSE DELIVERED: 1,133.33mGy.cm Total DLP DATA REPOSITORY: All CT scans at this facility are submitted to the National Radiology Data Registry (NRDR) Dose Index Registry (DIR) with the [employer] (A[employer]). RADIATION OPTIMIZATION: All CT scans at this facility use at least one of these dose optimization te chniques: automated exposure control; mA and/or kV adjustment per patient size (includes targeted exa ms where dose is matched to clinical indication); or iterative reconstruction.
[2021-05-02] MEDS: LORazepam 2 MG/ML VIAL 1 MG IVP (19:27)
--- NOTE | 2021-05-02 19:39 | NUR.NOTE ---
Nursing Note: Patient to CT scan via stretcher.
[2021-05-02] MEDS: Omnipaque 350 MG/ML 100 ML BTL IV (19:47)
[2021-05-02] MEDS: Normal Saline - Diluent 50 ML VIAL IV (19:54)
--- NOTE | 2021-05-02 20:25 | DI.VRAD_ITS ---
PROCEDURE INFORMATION: Exam: CT Abdomen And Pelvis Without And With Contrast Exam date and time: 05/02/2021 7:42 PM Age: 65 years old Clinical indication: Other: Increased SOB, lung CA diag two week ago no treatment yet abdomial pain nausia; Additional info: Increased SOB, lung CA diag two week ago no treatment yet, abdominal pain nausea TECHNIQUE: Imaging protocol: Computed tomography of the abdomen and pelvis without and with contrast. 3D rendering (Not supervised by radiologist): MIP and/or 3D reconstructed images were created by the technologist. Radiation optimization: All CT scans at this facility use at least one of these dose optimization techniques: automated exposure control; mA and/or kV adjustment per patient size (includes targeted exams where dose is matched to clinical indication); or iterative reconstruction. COMPARISON: CT CHEST/ABD/PEL W 04/12/2021 10:01 AM FINDINGS: Liver: 8 mm hypodense lesion within the left hepatic lobe most likely compatible with a cyst. Otherwise the liver is unremarkable. Gallbladder and bile ducts: Normal. No calcified stones. No ductal dilation. Pancreas: Normal. No ductal dilation. Spleen: Normal. No splenomegaly. Adrenal glands: Stable 2 cm enhancing nodule within the left adrenal gland highly suspicious for metastatic disease. Kidneys and ureters: Normal. No hydronephrosis. Stomach and bowel: Unremarkable. No obstruction. No mucosal thickening. Appendix: No evidence of appendicitis. Intraperitoneal space: Unremarkable. No free air. No significant fluid collection. Vasculature: The vasculature demonstrates diffuse moderate atherosclerotic calcification. Lymph nodes: Unremarkable. No enlarged lymph nodes. Urinary bladder: Unremarkable as visualized. Reproductive: Partially visualized left moderate-sized hydrocele. Bones/joints: Stable ill-defined sclerotic lesions within the T8, T11, T12 and L3 suspicious for metastatic osseous disease. Soft tissues: Unremarkable. IMPRESSION: 1. No evidence of acute abdominal or pelvic process. 2. Stable 2 cm enhancing nodule within the left adrenal gland highly suspicious for metastatic disease. 3. Stable ill-defined sclerotic lesions within the T8, T11, T12 and L3 suspicious for metastatic osseous disease. 4. Partially visualized left moderate-sized hydrocele. Dictated and Authenticated by: Hugo Trinidad MD. Ordering:MARGIE Monterroso MD
--- NOTE | 2021-05-02 20:31 | NUR.NOTE ---
Nursing Note: Admitting MD at bedside.
[2021-05-02 20:39] LABS: Source Nasal/Nares
--- NOTE | 2021-05-02 20:52 | HPE_ITS ---
Date of service: 05/02/21 Time of Service: 20:52 Assessment and Plan Assessment and plan (1) Hypoxia: Status: Acute Assessment and plan: Supplemental oxygen will be given. He will likely need oxygen at home. (2) Lung cancer: Status: Chronic Assessment and plan: This may have progressed since his last CT scan 2 weeks ago. (3) Metastatic lung cancer (metastasis from lung to other site): Status: Acute Assessment and plan: I have asked for palliative care consult. He is undecided at this point how aggressive to be with treatment of this illness. He is hoping to see the oncologist on May 08 to review his studies and the treatment plan that may be proposed by the oncologist. (4) Leukocytosis: Status: Acute Assessment and plan: There are some infiltrates in the lung and he has an elevated white blood cell count. We will treated with antibiotics tonight and review the scan with radiology tomorrow. History of Present Illness History of Present Illness Chief Complaint: Dyspnea Narrative: This 65-year-old male was recently diagnosed with metastatic lung cancer. It is in the right upper lobe with metastatic disease to the spine hip and adrenals. He was hospitalized at [facility] from April 12 until the . He says he used oxygen intermittently during that hospital stay but it was decided that he did not need oxygen at home. He has been having increasing shortness of breath and has had very poor appetite at home. He was living by himself but currently has family living with him. He has had some weight loss with a weight a few months ago recorded at 80 kg and now is about 71 kg. He has an appointment with oncology at [facility] on May 08. He is hoping to feel better and if he does not improve he does not think he will want to undergo much in the way of treatment. He knows he has extensive disease. He has pain in his back if he lays too long and has pain in his feet. He is switching doctors from the [facility] to [facility] in [place]. He has filled out paperwork to be a DNR status. The son brought that in tonight. He says he is not sure why he was not put on oxygen before he was discharged last week but it sounds like he was not meeting the criteria for home oxygen at that time. He says today he can only do 4-5 steps without getting extremely short of breath. 2 weeks ago he had hemoptysis but that is not occurring now. He has had some chills but no known fever. Review of Systems Constitutional Constitutional: Reports chills, Denies fever(s), Reports lethargy, Reports poor appetite, Reports weakness and Reports weight loss Cardiovascular Cardiovascular: Denies chest pain, Denies irregular heart rhythm, Denies lightheadedness, Denies palpitations, Reports dyspnea on exertion and Denies orthopnea Respiratory Respiratory: Reports chest congestion, Reports cough, Denies hemoptysis and Reports dyspnea on exertion Gastrointestinal Gastrointestinal: Denies abdominal pain, Denies constipation and Denies vomiting Genitourinary Genitourinary: Denies difficulty urinating, Denies dysuria and Denies urinary hesitancy Neurologic Neurologic: Reports weakness Endocrine Endocrine: Denies palpitations [facility] Medical History (Updated 05/02/21 @ 21:03 by Chadwick Vargas MD) BPH (benign prostatic hyperplasia) Cyst Depression Irritable bowel syndrome with diarrhea Lung cancer Metastatic lung cancer (metastasis from lung to other site) Osteoarthritis Teeth missing Tubular adenoma of colon Surgical History (Updated 04/28/21 @ 14:34 by Keisha Houston) Colonoscopy - IV Sedation (07/27/16) History of Oswaldo fundoplication (02/08/16) Family History Mother No problems noted. Father No problems noted. Sister No problems noted. Sister No problems noted. Sister Personal history of malignant neoplasm Sister No problems noted. Brother No problems noted. Brother Personal history of malignant neoplasm Brother No problems noted. Brother No problems noted. Brother No problems noted. Son No problems noted. Social History Smoking/Tobacco Use Status: Former Tobacco Use Smoking risk assessment performed?: Yes Alcohol Intake: former Drug use: Never Substance use type: does not use Do you feel safe at home: Yes Do you feel safe in your relationship?: Yes Meds Allergies and Home Medications Allergies Allergy/AdvReac Type Severity Reaction Status Date / Time codeine AdvReac Unknown SEVERE Unverified 05/02/21 18:17 ABDOMINAL PAIN Home Medications Medication Instructions Recorded Confirmed Type albuterol sulfate 2 inh INHALATION Q6H PRN PRN 04/13/21 05/02/21 History fluticasone propionate [Flovent 2 puff INHALATION BID 04/13/21 05/02/21 History HFA] acetaminophen 500 mg PO PRN PRN 05/02/21 05/02/21 History albuterol sulfate 2.5 mg INHALATION Q4H PRN PRN 05/02/21 05/02/21 History dronabinol 2.5 mg PO BIDWMEAL 05/02/21 05/02/21 History hydromorphone 2 mg PO QID 05/02/21 05/02/21 History pantoprazole 40 mg PO DAILY 05/02/21 05/02/21 History Exam Const General: cooperative, not diaphoretic, disheveled, frail appearing, ill appearing, does not appear intoxicated and not lethargic Orientation: alert and awake [facility] Head: normal to inspection Neck Neck: normal visual inspection and no lymphadenopathy Resp Effort & Inspection: normal respiratory effort and able to speak in complete sentences Other: Diminished breath sounds in the right upper lung field. Coarse rhonchi bilaterally. No rales audible. Cardio Jugular venous pressure: no JVD Rate: regular rate Rhythm: regular rhythm Heart Sounds: no gallops and no murmurs GI Palpation: soft, no hepatosplenomegaly and nontender Skin General skin exam: no rashes or lesions noted and pallor Extrem General: no cyanosis and no edema Results Labs Result diagrams: 05/02/21 18:08 05/02/21 18:08 Labs: Laboratory Results - last 24 hr 05/02/21 05/02/21 05/02/21 18:08 18:08 18:08 WBC 18.38 H RBC 4.60 Hgb 13.4 L Hct 41.4 MCV 90.0 MCH 29.1 MCHC 32.4 RDW 13.7 Plt Count 162 MPV 10.6 Immature Gran % 0.8 Neutrophils % 88.7 Lymphocytes % 2.0 Monocytes % 8.1 Eosinophils % 0.2 Basophils % 0.2 Nucleated RBC % 0 Absolute Neutrophils 16.30 H Absolute Lymphocytes 0.37 L Absolute Monocytes 1.49 H Absolute Eosinophils 0.04 Absolute Basophils 0.04 PT INR APTT D-Dimer VBG pH VBG pCO2 VBG pO2 VBG HCO3 VBG Total CO2 VBG O2 Saturation VBG Base Excess VBG Lactate 1.5 H Sodium 134 L Potassium 3.9 Chloride 96 L Carbon Dioxide 30.9 Anion Gap 7.1 BUN 11 Creatinine 0.9 Estimated GFR/1.73 m2 >= 60.00 Glucose 127 H Calcium 9.4 Magnesium 2.0 Total Bilirubin 0.7 AST 17 ALT 43 Alkaline Phosphatase 119 H Troponin I < 0.05 NT-Pro-B Natriuret Pep 199 Total Protein 7.1 Albumin 2.7 L COVID-19 Source 05/02/21 05/02/21 05/02/21 18:08 18:08 20:35 WBC RBC Hgb Hct MCV MCH MCHC RDW Plt Count MPV Immature Gran % Neutrophils % Lymphocytes % Monocytes % Eosinophils % Basophils % Nucleated RBC % Absolute Neutrophils Absolute Lymphocytes Absolute Monocytes Absolute Eosinophils Absolute Basophils PT 12.5 H INR 1.2 H APTT 29.1 H D-Dimer 709 H VBG pH 7.44 H VBG pCO2 48 VBG pO2 21 VBG HCO3 33 H VBG Total CO2 29 VBG O2 Saturation 31 VBG Base Excess 8 H VBG Lactate Sodium Potassium Chloride Carbon Dioxide Anion Gap BUN Creatinine Estimated GFR/1.73 m2 Glucose Calcium Magnesium Total Bilirubin AST ALT Alkaline Phosphatase Troponin I NT-Pro-B Natriuret Pep Total Protein Albumin COVID-19 Source Nasal/Nares Last Vital Signs Temp 36.9 C 05/02/21 18:00 Pulse 135 H 05/02/21 20:15 Resp 36 H 05/02/21 20:20 BP 102/62 05/02/21 20:15 Pulse Ox 93 05/02/21 20:15
[2021-05-02 21:33] LABS: COVID-19 PCR Negative (Negative)
[2021-05-02 21:37] LABS: Bilirubin Negative (Negative); Blood Negative (Negative); Clarity Clear (Clear); Glucose Negative (Negative); Ketones Negative (Negative); Leukocyte Esterase Negative (Negative); Nitrite Negative (Negative); Urobilinogen 0.2 EU/dL (Up TO 0.2)
[2021-05-02 22:01] LABS: Troponin I < 0.05 ng/mL (<0.06)
[2021-05-02] MEDS: Albuterol/Ipratropium 3 ML UPD VIAL UPD (23:21)
[2021-05-02] MEDS: Acetaminophen 500 MG TAB PO (23:21)
[2021-05-03] VITALS (12 sets, daily range): BP systolic 92–106; BP diastolic 55–65; PULSE 57–125; RESP 4–28; TEMP 36.3–38.1; O2SAT 92–99
[2021-05-03] MEDS: PIPERACILLIN/TAZO 4.5 GM in Normal Saline 100 ML IVPB ×2 (00:17→06:25)
[2021-05-03] MEDS: Albuterol/Ipratropium 3 ML UPD VIAL UPD ×4 (04:18→21:36)
[2021-05-03] MEDS: Normal Saline Flush 10 ML SYR IVP ×2 (06:25→16:28)
[2021-05-03 07:05] LABS: Abs Immature Grans 0.09 10^3/uL (0.0-0.06); Absolute Monocyte Count 1.23 10^3/uL (0.1-0.8); Basophils % 0.2; Eosinophils % 0.6; HCT 37.6 % (40.0-50.0); Immature Grans % 0.7; Lymphocytes % 1.6; MCH 29.4 pg (27.0-33.0); MCHC 31.9 % (32.0-36.0); MCV 92.2 fL (80-95); MPV 10.4 fL (8.0-11.0); Monocytes % 9.9; Nucleated RBC 0 %; Platelet Count 125 10^3/uL (130-400); RBC 4.08 10^6/uL (4.36-5.78); RDW 13.6 % (11.8-14.1); RDW-SD 45.8 fL; WBC 12.38 10^3/uL (4.4-10.8)
[2021-05-03 07:10] LABS: Absolute Basophil Count 0.02 10^3/uL (0.0-0.2); Absolute Eosinophil Count 0.07 10^3/uL (0.0-0.7); Absolute Neutrophil Count 10.77 10^3/uL (1.2-6.7)
--- NOTE | 2021-05-03 09:12 | PCNE_ITS ---
Date of service: 05/03/21 Time of Service: 09:12 History of Present Illness History of Present Illness Chief Complaint: I am dying Narrative: 65-year-old man who was recently diagnosed with lung cancer. He spent 2 weeks at [facility]. He was admitted last night to [facility] due to hypoxia. His repeat chest CT showed progression of disease. He knows he is dying. His goal is to spend as much time possible with his family. Some of them have not been vaccinated today would not be able to come into the hospital to see him. He does have an appointment to see an oncologist on May 08. He would like to see what they can offer him at this point in his disease. From H and P: istory of Present Illness Chief Complaint: Dyspnea Narrative: This 65-year-old male was recently diagnosed with metastatic lung cancer. It is in the right upper lobe with metastatic disease to the spine hip and adrenals. He was hospitalized at [facility] from April 12 until the . He says he used oxygen intermittently during that hospital stay but it was decided that he did not need oxygen at home. He has been having increasing shortness of breath and has had very poor appetite at home. He was living by himself but currently has family living with him. He has had some weight loss with a weight a few months ago recorded at 80 kg and now is about 71 kg. He has an appointment with oncology at [facility] on May 08. He is hoping to feel better and if he does not improve he does not think he will want to undergo much in the way of treatment. He knows he has extensive disease. He has pain in his back if he lays too long and has pain in his feet. He is switching doctors from the [facility] to [facility] in [place]. He has filled out paperwork to be a DNR status. The son brought that in tonight. He says he is not sure why he was not put on oxygen before he was discharged last week but it sounds like he was not meeting the criteria for home oxygen at that time. He says today he can only do 4-5 steps without getting extremely short of breath. 2 weeks ago he had hemoptysis but that is not occurring now. He has had some chills but no known fever. Consults Consult date: 05/03/21 Requesting physician: Chadwick Vargas Assessment and Plan Assessment and plan (1) Metastatic lung cancer (metastasis from lung to other site): Status: Acute (2) Leukocytosis: Status: Acute (3) Hypoxia: Status: Acute (4) Hemoptysis: Status: Acute (5) Advance care planning: Status: Acute Assessment and plan: Understandably, Ed wants to talk with the oncologist so he knows what his options are. The plan is for him to be seen on Saturday with oncology, and then follow-up with me on Saturday, May 10 so we can talk about his choices COLST form completed. He is a DNR/DNI His overwhelming goal is that he wants to be with his family He also does have some abdominal gas and would like Gas-X before every meal Review of Systems Narrative: He can take about 5 steps prior to being short of breath. He does not feel well. Does not feel much like eating. Has had hemoptysis. Gastrointestinal Gastrointestinal: Reports abdominal pain, Reports belching, Reports dyspepsia and Reports other (Gas) [facility] Medical History (Updated 05/04/21 @ 10:10 by Елена Silva MD, [place]) BPH (benign prostatic hyperplasia) Cyst Depression Irritable bowel syndrome with diarrhea Lung cancer Metastatic lung cancer (metastasis from lung to other site) Osteoarthritis Teeth missing Tubular adenoma of colon Surgical History (Updated 04/28/21 @ 14:34 by Keisha Houston) Colonoscopy - IV Sedation (07/27/16) History of Oswaldo fundoplication (02/08/16) Family History Mother No problems noted. Father No problems noted. Sister No problems noted. Sister No problems noted. Sister Personal history of malignant neoplasm Sister No problems noted. Brother No problems noted. Brother Personal history of malignant neoplasm Brother No problems noted. Brother No problems noted. Brother No problems noted. Son No problems noted. Social History (Updated 05/03/21 @ 13:26 by Kelly Casillas) Smoking/Tobacco Use Status: Former Tobacco Use tobacco type: cigarettes Second Hand Exposure: Yes Smoking risk assessment performed?: Yes Alcohol Intake: former Drug use: Never Substance use type: does not use Household members: family Housing: house Do you need help understanding health information?: Always Pets and animals: Yes Pets and animals: cat(s) Sexually active: No Do you think of yourself as: straight/heterosexual Current gender identity: male What is your relationship status?: How often do you get together with friends or relatives?: never How often do you attend christian or shinto services?: decline to answer Do you belong to any clubs or organized social groups?: yes Panel score (0-1 are the most socially isolated patients): 1 Special alejandra needs: No Seatbelt use: always Helmet use: No Drive 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 He can sit up but needs help. He is talking in short sentences. He has diminished lung sounds. I did not detect any rales. There was some wheezing. Results Last Vital Signs Temp 97.3 F L 05/03/21 07:54 Pulse 108 H 05/03/21 07:54 Resp 21 05/03/21 07:54 BP 106/65 05/03/21 07:54 Pulse Ox 95 05/03/21 07:54 Labs Result diagrams: 05/04/21 06:40 05/04/21 06:40 Labs: Laboratory Results - last 24 hr 05/02/21 05/02/21 05/02/21 18:08 18:08 18:08 WBC 18.38 H RBC 4.60 Hgb 13.4 L Hct 41.4 MCV 90.0 MCH 29.1 MCHC 32.4 RDW 13.7 Plt Count 162 MPV 10.6 Immature Gran % 0.8 Neutrophils % 88.7 Lymphocytes % 2.0 Monocytes % 8.1 Eosinophils % 0.2 Basophils % 0.2 Nucleated RBC % 0 Absolute Neutrophils 16.30 H Absolute Lymphocytes 0.37 L Absolute Monocytes 1.49 H Absolute Eosinophils 0.04 Absolute Basophils 0.04 PT INR APTT D-Dimer VBG pH VBG pCO2 VBG pO2 VBG HCO3 VBG Total CO2 VBG O2 Saturation VBG Base Excess VBG Lactate 1.5 H Sodium 134 L Potassium 3.9 Chloride 96 L Carbon Dioxide 30.9 Anion Gap 7.1 BUN 11 Creatinine 0.9 Estimated GFR/1.73 m2 >= 60.00 Glucose 127 H Calcium 9.4 Magnesium 2.0 Total Bilirubin 0.7 AST 17 ALT 43 Alkaline Phosphatase 119 H Troponin I < 0.05 NT-Pro-B Natriuret Pep 199 Total Protein 7.1 Albumin 2.7 L Urine Color Urine Clarity Urine pH Ur Specific Outlook Urine Protein Urine Ketones Urine Blood Urine Nitrite Urine Bilirubin Urine Urobilinogen Ur Leukocyte Esterase Urine Glucose COVID-19 Source SARS-CoV-2 (PCR) 05/02/21 05/02/21 05/02/21 18:08 18:08 20:35 WBC RBC Hgb Hct MCV MCH MCHC RDW Plt Count MPV Immature Gran % Neutrophils % Lymphocytes % Monocytes % Eosinophils % Basophils % Nucleated RBC % Absolute Neutrophils Absolute Lymphocytes Absolute Monocytes Absolute Eosinophils Absolute Basophils PT 12.5 H INR 1.2 H APTT 29.1 H D-Dimer 709 H VBG pH 7.44 H VBG pCO2 48 VBG pO2 21 VBG HCO3 33 H VBG Total CO2 29 VBG O2 Saturation 31 VBG Base Excess 8 H VBG Lactate Sodium Potassium Chloride Carbon Dioxide Anion Gap BUN Creatinine Estimated GFR/1.73 m2 Glucose Calcium Magnesium Total Bilirubin AST ALT Alkaline Phosphatase Troponin I NT-Pro-B Natriuret Pep Total Protein Albumin Urine Color Urine Clarity Urine pH Ur Specific Outlook Urine Protein Urine Ketones Urine Blood Urine Nitrite Urine Bilirubin Urine Urobilinogen Ur Leukocyte Esterase Urine Glucose COVID-19 Source Nasal/Nares SARS-CoV-2 (PCR) Negative 05/02/21 05/02/21 05/03/21 21:00 21:29 06:45 WBC 12.38 H D RBC 4.08 L Hgb 12.0 L Hct 37.6 L MCV 92.2 MCH 29.4 MCHC 31.9 L RDW 13.6 Plt Count 125 L MPV 10.4 Immature Gran % 0.7 Neutrophils % 87.0 Lymphocytes % 1.6 Monocytes % 9.9 Eosinophils % 0.6 Basophils % 0.2 Nucleated RBC % 0 Absolute Neutrophils 10.77 H Absolute Lymphocytes 0.20 L Absolute Monocytes 1.23 H Absolute Eosinophils 0.07 Absolute Basophils 0.02 PT INR APTT D-Dimer VBG pH VBG pCO2 VBG pO2 VBG HCO3 VBG Total CO2 VBG O2 Saturation VBG Base Excess VBG Lactate Sodium Potassium Chloride Carbon Dioxide Anion Gap BUN Creatinine Estimated GFR/1.73 m2 Glucose Calcium Magnesium Total Bilirubin AST ALT Alkaline Phosphatase Troponin I < 0.05 NT-Pro-B Natriuret Pep Total Protein Albumin Urine Color Yellow Urine Clarity Clear Urine pH 7.0 Ur Specific Outlook 1.010 Urine Protein Negative Urine Ketones Negative Urine Blood Negative Urine Nitrite Negative Urine Bilirubin Negative Urine Urobilinogen 0.2 Ur Leukocyte Esterase Negative Urine Glucose Negative COVID-19 Source SARS-CoV-2 (PCR) Laboratory Tests 05/02/21 05/03/21 18:08 06:45 WBC 12.38 H D Hct 37.6 L Plt Count 125 L Sodium 134 L Alkaline Phosphatase 119 H Albumin 2.7 L NDINGS: Liver: 8 mm hypodense lesion within the left hepatic lobe most likely compatible with a cyst. Otherwise the liver is unremarkable. Gallbladder and bile ducts: Normal. No calcified stones. No ductal dilation. Pancreas: Normal. No ductal dilation. Spleen: Normal. No splenomegaly. Adrenal glands: Stable 2 cm enhancing nodule within the left adrenal gland highly suspicious for metastatic disease. Kidneys and ureters: Normal. No hydronephrosis. Stomach and bowel: Unremarkable. No obstruction. No mucosal thickening. Appendix: No evidence of appendicitis. Intraperitoneal space: Unremarkable. No free air. No significant fluid collection. Vasculature: The vasculature demonstrates diffuse moderate atherosclerotic calcification. Lymph nodes: Unremarkable. No enlarged lymph nodes. Urinary bladder: Unremarkable as visualized. Reproductive: Partially visualized left moderate-sized hydrocele. Bones/joints: Stable ill-defined sclerotic lesions within the T8, T11, T12 and L3 suspicious for metastatic osseous disease. Soft tissues: Unremarkable. IMPRESSION: 1. No evidence of acute abdominal or pelvic process. 2. Stable 2 cm enhancing nodule within the left adrenal gland highly suspicious for metastatic disease. 3. Stable ill-defined sclerotic lesions within the T8, T11, T12 and L3 suspicious for metastatic osseous disease. 4. Partially visualized left moderate-sized hydrocele.
[2021-05-03] MEDS: Simethicone 80 MG CHEW 160 MG PO ×3 (09:41→18:44)
[2021-05-03] MEDS: HYDROmorphone 2 MG TAB PO ×4 (09:56→20:34)
[2021-05-03] MEDS: Pantoprazole 40 MG TABCR PO (09:56)
[2021-05-03] MEDS: Acetaminophen 500 MG TAB PO ×2 (10:01→17:05)
--- NOTE | 2021-05-03 10:03 | PDOC.CMIN ---
- If Service Date Differs Date of service: 05/03/21 Time of Service: 10:05 Care Management Initial Assess REASON FOR HOSPITALIZATION:: Hypoxia PAST MEDICAL HISTORY/PAST SURGICAL HISTORY:: BPH (benign prostatic hyperplasia). Cyst. Depression. Irritable bowel syndrome with diarrhea. Lung cancer. Metastatic lung cancer (metastasis from lung to other site). Osteoarthritis. Teeth missing. Tubular adenoma of colon. Colonoscopy - IV Sedation (07/27/16). History of Oswaldo fundoplication (02/08/16) PREVIOUS FUNCTIONAL STATUS/SOCIAL/FAMILY SUPPORTS:: Reji resides in [place], [place]. He is and has supportive family, his son Chadwick, brother Javier and niece Lindsay all who reside locally. He struggles with decline due to metastatic lung cancer, his brother is supportive in his care as well as his other siblings. He has home health services and utilizes a FWW as needed. ADVANCE DIRECTIVES:: COLST: sonChadwick. Has patient been provided with info about the portal/API?: Yes Did the patient sign up for the portal?: No CODE STATUS:: DNR/DNI INSURANCE COVERAGE / FINANCIAL ISSUES:: Medicare. Medicaid CURRENT HOME/COMMUNITY SERVICES/EQUIPMENT:: [facility] PRIMARY CARE PHYSICIAN:: Елена Silva DO. POTENTIAL DISCHARGE NEEDS:: Palliative consult-likely with hospice discussion, possible O2 coordination. PATIENT/FAMILY EDUCATION NEEDS:: Review discharge instructions, discuss Ask Me Three. ANTICIPATED BARRIERS TO DISCHARGE:: None identified. TRANSPORTATION:: Via private vehicle with family. PLAN:: Reji will return home when ready per MD. He will be closely followed by Dr. Silva and [facility] services. Anticipate possible new home O2-RT following. CM continues to follow as well. Reji will transport via private vehicle with family.
[2021-05-03] MEDS: Mometasone 220 MCG 14 DOSE INHALER 2 PUFF IH ×2 (10:50→20:34)
[2021-05-03] MEDS: Dronabinol 2.5 MG CAP PO (12:02)
--- NOTE | 2021-05-03 15:02 | CHAPLAIN ---
Ed was in bed when I visited. He told me he is here because he has cancer, and he'll be finding out soon what his course of treatment will be. He said his brother lives with and helps provide some care. When I asked who he talks with about he life and challenges, he said he talks to himself and that he is his own best friend. I left with Respiratory arrived for a treatment. I will continue to visit.
[2021-05-03] MEDS: Dronabinol 2.5 MG CAP 5 MG PO (16:27)
[2021-05-03] MEDS: Normal Saline 500 ML IV (18:30)
--- NOTE | 2021-05-03 18:43 | W.PM.PROGNOT ---
Date of Service Date of service: 05/03/21 Time of Service: 18:44 Assessment and Plan Assessment and plan (1) Hypoxia: Status: Acute Assessment and plan: Was not previously on home O2. O2 saturations in the high 90's at rest on 2L NC Will have exercise oxygen eval prior to d/c to see if qualifies for home O2. (2) Lung cancer: Status: Chronic Assessment and plan: This may have progressed since his last CT scan 2 weeks ago. He has scheduled oncology appt for next week. (3) Metastatic lung cancer (metastasis from lung to other site): Status: Acute Assessment and plan: This may have progressed since his last CT scan 2 weeks ago. He has scheduled oncology appt for next week. Palliative consult appreciated. COLST form signed by patient. Very poor appetite d/t dysgusia. On marinol 2.5mg BID; increase to 5mg BID. (4) Leukocytosis: Status: Acute Assessment and plan: There are some infiltrates in the lung and he has an elevated white blood cell count. WBC count improving. Monitor. Cont Zosyn and Vancomycin. Subjective Subjective Patient reports: no new complaints and shortness of breath (Modestly improved.); denies nausea and vomiting Interval history since last seen: Appetite is poor. His son endorses that the patient has eaten nothing but grapes and instant pudding over the last week. Pt states all foods taste bitter. Exam Const General: cooperative, not diaphoretic, disheveled, frail appearing, ill appearing, does not appear intoxicated and not lethargic Orientation: alert and awake [facility] Head: normal to inspection Neck Neck: normal visual inspection and no lymphadenopathy Resp Effort & Inspection: normal respiratory effort Auscultation: clear to auscultation bilaterally and diminished lung sounds Cardio Jugular venous pressure: no JVD Rate: regular rate Rhythm: regular rhythm Heart Sounds: no gallops and no murmurs GI Palpation: soft, no hepatosplenomegaly and nontender Skin Rashes: other (2-4 mm mildly erythematous papular rash on dorsum of feet, thighs.) Extrem General: no cyanosis and no edema Objective Last Vital Signs Temp 37.8 C H 05/03/21 16:30 Pulse 118 H 05/03/21 16:54 Resp 20 05/03/21 16:54 BP 102/58 L 05/03/21 16:30 Pulse Ox 98 05/03/21 16:54 Laboratory Results - last 24 hr 05/02/21 05/02/21 05/02/21 18:08 18:08 20:35 WBC RBC Hgb Hct MCV MCH MCHC RDW Plt Count MPV Immature Gran % Neutrophils % Lymphocytes % Monocytes % Eosinophils % Basophils % Nucleated RBC % Absolute Neutrophils Absolute Lymphocytes Absolute Monocytes Absolute Eosinophils Absolute Basophils D-Dimer 709 H Sodium 134 L Potassium 3.9 Chloride 96 L Carbon Dioxide 30.9 Anion Gap 7.1 BUN 11 Creatinine 0.9 Estimated GFR/1.73 m2 >= 60.00 Glucose 127 H Calcium 9.4 Magnesium 2.0 Total Bilirubin 0.7 AST 17 ALT 43 Alkaline Phosphatase 119 H Troponin I < 0.05 NT-Pro-B Natriuret Pep 199 Total Protein 7.1 Albumin 2.7 L Urine Color Urine Clarity Urine pH Ur Specific [place] Urine Protein Urine Ketones Urine Blood Urine Nitrite Urine Bilirubin Urine Urobilinogen Ur Leukocyte Esterase Urine Glucose COVID-19 Source Nasal/Nares SARS-CoV-2 (PCR) Negative 05/02/21 05/02/21 05/03/21 21:00 21:29 06:45 WBC 12.38 H D RBC 4.08 L Hgb 12.0 L Hct 37.6 L MCV 92.2 MCH 29.4 MCHC 31.9 L RDW 13.6 Plt Count 125 L MPV 10.4 Immature Gran % 0.7 Neutrophils % 87.0 Lymphocytes % 1.6 Monocytes % 9.9 Eosinophils % 0.6 Basophils % 0.2 Nucleated RBC % 0 Absolute Neutrophils 10.77 H Absolute Lymphocytes 0.20 L Absolute Monocytes 1.23 H Absolute Eosinophils 0.07 Absolute Basophils 0.02 D-Dimer Sodium Potassium Chloride Carbon Dioxide Anion Gap BUN Creatinine Estimated GFR/1.73 m2 Glucose Calcium Magnesium Total Bilirubin AST ALT Alkaline Phosphatase Troponin I < 0.05 NT-Pro-B Natriuret Pep Total Protein Albumin Urine Color Yellow Urine Clarity Clear Urine pH 7.0 Ur Specific [place] 1.010 Urine Protein Negative Urine Ketones Negative Urine Blood Negative Urine Nitrite Negative Urine Bilirubin Negative Urine Urobilinogen 0.2 Ur Leukocyte Esterase Negative Urine Glucose Negative COVID-19 Source SARS-CoV-2 (PCR)
[2021-05-03] MEDS: VANCOMYCIN/WATER (PEG) 1.5 GM/300 ML BAG IV (19:10)
[2021-05-03] MEDS: Hydrocortisone 1% CR 30 GM TUBE TP (20:35)
[2021-05-03] MEDS: Normal Saline 1,000 ML 125 ML IV (23:00)
[2021-05-04] VITALS (16 sets, daily range): BP systolic 94–107; BP diastolic 57–67; PULSE 86–134; RESP 4–28; TEMP 36.2–38.4; O2SAT 78–97
[2021-05-04] MEDS: Acetaminophen 500 MG TAB 1000 MG PO ×2 (00:26→15:55)
[2021-05-04] MEDS: VANCOMYCIN/WATER (PEG) 1 GM/200 ML BAG IV ×3 (01:56→21:45)
[2021-05-04] MEDS: Normal Saline 1,000 ML 125 ML IV ×2 (03:52→14:33)
[2021-05-04] MEDS: Albuterol/Ipratropium 3 ML UPD VIAL UPD ×4 (03:56→22:07)
[2021-05-04 07:10] LABS: Abs Immature Grans 0.09 10^3/uL (0.0-0.06); Absolute Basophil Count 0.03 10^3/uL (0.0-0.2); Absolute Eosinophil Count 0.19 10^3/uL (0.0-0.7); Absolute Lymphocyte Count 0.17 10^3/uL (1.2-3.4); Absolute Monocyte Count 1.26 10^3/uL (0.1-0.8); Basophils % 0.2; Eosinophils % 1.3; HCT 33.1 % (40.0-50.0); HGB 10.6 g/dL (13.5-17.5); Immature Grans % 0.6; Lymphocytes % 1.2; MCH 29.4 pg (27.0-33.0); MCV 91.7 fL (80-95); MPV 10.5 fL (8.0-11.0); Monocytes % 8.8; Neutrophils % 87.9; Nucleated RBC 0 %; Platelet Count 124 10^3/uL (130-400); RBC 3.61 10^6/uL (4.36-5.78); RDW 13.3 % (11.8-14.1); RDW-SD 45.5 fL; WBC 14.34 10^3/uL (4.4-10.8)
[2021-05-04] MEDS: Simethicone 80 MG CHEW 160 MG PO ×4 (07:22→22:05)
[2021-05-04 08:16] LABS: BUN 10 mg/dL (7-18); CREATININE 0.8 mg/dL (0.70-1.30); Calcium 7.9 mg/dL (8.5-10.1); Chloride 100 mmol/L (98-107); Glucose 93 mg/dL (74-106); Potassium 3.5 mmol/L (3.5-5.1); Sodium 136 mmol/L (136-145); Vitamin B12 192 pg/mL (193-986)
[2021-05-04] MEDS: Pantoprazole 40 MG TABCR PO (08:31)
[2021-05-04] MEDS: HYDROmorphone 2 MG TAB PO ×4 (08:31→20:02)
[2021-05-04] MEDS: Mometasone 220 MCG 14 DOSE INHALER 2 PUFF IH ×2 (10:01→20:02)
[2021-05-04] MEDS: Dronabinol 2.5 MG CAP 5 MG PO ×2 (12:04→15:56)
--- NOTE | 2021-05-04 14:24 | PGE_ITS ---
Date of Service Date of service: 05/04/21 Time of Service: 14:24 Assessment and Plan Assessment and plan (1) Hypoxia: Status: Acute Assessment and plan: Was not previously on home O2. O2 saturations cont in the high 90's at rest on 2L NC Will have exercise oxygen eval prior to d/c to see if qualifies for home O2. (2) Lung cancer: Status: Chronic Assessment and plan: This may have progressed since his last CT scan 2 weeks ago. He has scheduled oncology appt for this next Saturday (3) Metastatic lung cancer (metastasis from lung to other site): Status: Acute Assessment and plan: This may have progressed since his last CT scan 2 weeks ago. He has scheduled oncology appt for next week. Palliative consult appreciated. COLST form signed by patient. Very poor appetite d/t dysgusia but saw improvement today. On marinol 2.5mg BID; increase to 5mg BID. (4) Leukocytosis: Status: Acute Assessment and plan: There are some infiltrates in the lung and he has an elevated white blood cell count. WBC count had improved but now higher. Monitor. Cont Zosyn and Vancomycin. Subjective Subjective Patient reports: no new complaints, feels better, shortness of breath (Modestly improved.) and fever (38.4 C at 2200 and MN last PM); denies diarrhea, nausea and vomiting Interval history since last seen: His appetite has improved; ate more this AM. States he didn't sleep last night. Cough. No sputum; can't expectorate phlegm that he feels gets no further than upper airway. Exam Const General: cooperative, not diaphoretic, frail appearing, ill appearing, does not appear intoxicated and not lethargic Orientation: alert and awake [facility] Head: normal to inspection Neck Neck: normal visual inspection and no lymphadenopathy Resp Effort & Inspection: normal respiratory effort Auscultation: clear to auscultation bilaterally and diminished lung sounds Cardio Jugular venous pressure: no JVD Rate: regular rate Rhythm: regular rhythm Heart Sounds: no gallops and no murmurs GI Palpation: soft, no hepatosplenomegaly and nontender Skin Rashes: other (2-4 mm mildly erythematous papular rash on dorsum of feet, thighs.) Extrem General: no cyanosis and no edema Objective Last Vital Signs Temp 36.8 C 05/04/21 11:32 Pulse 116 H 05/04/21 11:59 Resp 28 H 05/04/21 11:59 BP 98/64 L 05/04/21 11:32 Pulse Ox 94 05/04/21 13:53 Laboratory Results - last 24 hr 05/04/21 05/04/21 06:40 06:40 WBC 14.34 H RBC 3.61 L Hgb 10.6 L Hct 33.1 L MCV 91.7 MCH 29.4 MCHC 32.0 RDW 13.3 Plt Count 124 L MPV 10.5 Immature Gran % 0.6 Neutrophils % 87.9 Lymphocytes % 1.2 Monocytes % 8.8 Eosinophils % 1.3 Basophils % 0.2 Nucleated RBC % 0 Absolute Neutrophils 12.60 H Absolute Lymphocytes 0.17 L Absolute Monocytes 1.26 H Absolute Eosinophils 0.19 Absolute Basophils 0.03 Sodium 136 Potassium 3.5 Chloride 100 Carbon Dioxide 27.0 Anion Gap 9.0 BUN 10 Creatinine 0.8 Estimated GFR/1.73 m2 >= 60.00 Glucose 93 Calcium 7.9 L Vitamin B12 192 L
--- NOTE | 2021-05-04 14:29 | CHAPLAIN ---
Ed was in bed when I visited. He said he wasn't feeling as well as he did yesterday, and that he'd had a rough night. He was short of breath if he spoke to long at a time. Ed's son, Chadwick, visited yesterday and Ed said that Chadwick knows the extent of Ed's illness. Chadwick is his only child, but he also has a step daughter. Ed said his biggest fear is to a burden on Chadwick and other family members (siblings). We talked about being a burden comes along with being loved by someone.
--- NOTE | 2021-05-04 15:49 | PDOC.CMPRO ---
- If Service Date Differs Date of service: 05/04/21 Time of Service: 16:40 Care Management Progress Note S/O: Reji continues to be closely monitored and treated. He remains on O2-anticipate he will require O2 upon discharge. He remains on IV ABX per MD. Per Palliative Care consult Ed is switching doctors from the [facility] to [facility] in [place]. He has filled out paperwork to be a DNR status. He reports only being able to ambulate 4-5 steps without getting extremely short of breath. CM continues to follow. A: 65 year old male admitted to [facility] 05/02/21 for Hypoxia P: Reji will return home when ready per MD. He will be closely followed by Dr. Silva and [facility] services. Anticipate possible new home O2-RT following. CM continues to follow as well. Reji will transport via private vehicle with family.
[2021-05-04] MEDS: Normal Saline Flush 10 ML SYR IVP (16:41)
[2021-05-04] MEDS: AZITHROMYCIN 500 MG in Normal Saline 250 ML 250 MG IVPB (18:06)
[2021-05-04] MEDS: Melatonin 3 MG TAB PO (22:06)
[2021-05-04] MEDS: diphenhydrAMINE 25 MG CAP PO (22:07)
[2021-05-05] VITALS (10 sets, daily range): BP systolic 98–122; BP diastolic 57–69; PULSE 101–124; RESP 1–25; TEMP 36.9–38.1; O2SAT 90–97
[2021-05-05] MEDS: Normal Saline 1,000 ML 125 ML IV ×2 (02:24→13:42)
[2021-05-05] MEDS: Albuterol/Ipratropium 3 ML UPD VIAL UPD ×4 (03:31→23:37)
[2021-05-05 06:59] LABS: Absolute Lymphocyte Count 0.15 10^3/uL (1.2-3.4); Basophils % 0.1; Eosinophils % 1.8; HCT 31.3 % (40.0-50.0); HGB 10.1 g/dL (13.5-17.5); Immature Grans % 0.7; MCH 29.4 pg (27.0-33.0); MCHC 32.3 % (32.0-36.0); MCV 91.3 fL (80-95); MPV 10.2 fL (8.0-11.0); Monocytes % 6.8; Neutrophils % 89.6; Nucleated RBC 0 %; Platelet Count 130 10^3/uL (130-400); RBC 3.43 10^6/uL (4.36-5.78); RDW 13.4 % (11.8-14.1); RDW-SD 45.3 fL; WBC 14.77 10^3/uL (4.4-10.8)
[2021-05-05 07:02] LABS: Absolute Basophil Count 0.01 10^3/uL (0.0-0.2); Absolute Eosinophil Count 0.27 10^3/uL (0.0-0.7); Absolute Neutrophil Count 13.23 10^3/uL (1.2-6.7)
[2021-05-05 07:12] LABS: Anion Gap 6.5 mmol/L (3-11); BUN 7 mg/dL (7-18); CO2 26.5 mmol/L (21.0-32.0); CREATININE 0.7 mg/dL (0.70-1.30); Calcium 7.8 mg/dL (8.5-10.1); Chloride 103 mmol/L (98-107); Glucose 115 mg/dL (74-106); Sodium 136 mmol/L (136-145); Vancomycin, Trough 16.5 ug/mL (10.0-20.0)
[2021-05-05 07:14] LABS: Potassium 2.8 mmol/L (3.5-5.1)
[2021-05-05] MEDS: Simethicone 80 MG CHEW 160 MG PO ×2 (07:20→12:37)
[2021-05-05] MEDS: HYDROmorphone 2 MG TAB PO ×4 (07:43→21:39)
[2021-05-05] MEDS: Pantoprazole 40 MG TABCR PO (07:44)
[2021-05-05] MEDS: Hydrocortisone 1% CR 30 GM TUBE TP ×3 (07:48→20:22)
[2021-05-05] MEDS: VANCOMYCIN/WATER (PEG) 1 GM/200 ML BAG IV ×2 (07:49→18:44)
--- NOTE | 2021-05-05 09:00 | CMPROGNOTE_ITS ---
- If Service Date Differs Date of service: 05/05/21 Time of Service: 09:00 Care Management Progress Note S/O: Reji is planning on being discharged home with resumption of home health services tomorrow. His sister Tash Cardoso ([phone]) will drive him and is going to stay with him. His son is also supportive and nearby. His oncology appointment is Saturday at 4 and options for treatment will be discussed. Labs ordered by [facility] were done today. Per palliative care consult he is swi tching doctors from [facility] to [facility] in [place]. He met with RT today and did not qualify for home oxygen. A: 65 year old male admitted to [facility] 05/02/21 for Hypoxia, recently diagnosed with lung cancer P: Reji will likely return home tomorrow. He will follow up with Dr. Noriega at [facility] on Saturday at 4pm for a new patient appointment, labs ordered by [facility] [place] that appointment were done this morning. Reji will follow up with Dr. Silva and resume [facility] services. continues to follow discharge needs. Reji will likely transport via private vehicle with family.
--- NOTE | 2021-05-05 09:00 | PDOC.CMPRO ---
- If Service Date Differs Date of service: 05/05/21 Time of Service: 09:00 Care Management Progress Note S/O: Reji is planning on being discharged home with resumption of home health services tomorrow. His sister Tash Cardoso ([phone]) will drive him and is going to stay with him. His son is also supportive and nearby. His oncology appointment is Saturday at 4 and options for treatment will be discussed. Labs ordered by [facility] were done today. Per palliative care consult he is switching doctors from [facility] to [facility] in [place]. He met with RT today and did not qualify for home oxygen. A: 65 year old male admitted to [facility] 05/02/21 for Hypoxia, recently diagnosed with lung cancer P: Reji will likely return home tomorrow. He will follow up with Dr. Noriega at [facility] on Saturday at 4pm for a new patient appointment, labs ordered by [facility] [place] that appointment were done this morning. Reji will follow up with Dr. Silva and resume [facility] services. continues to follow discharge needs. Reji will likely transport via private vehicle with family.
[2021-05-05] MEDS: POTASSIUM CHLORIDE 10 MEQ/100 ML BAG 100 MEQ IVPB ×3 (09:52→14:52)
[2021-05-05] MEDS: Mometasone 220 MCG 14 DOSE INHALER 2 PUFF IH ×2 (09:59→20:20)
[2021-05-05] MEDS: LORazepam 0.5 MG TAB PO (10:00)
--- NOTE | 2021-05-05 11:35 | PT.INIE ---
Date of service: 05/05/21 Time of Service: 11:35 PT Notes Visit Reasons: Hypoxia Physical Therapy Inpatient Initial Evaluation Date: 05/05/2021 Referring Doctor: Dvaid Ball MD PT Orders: PT CONSULT: Eval/treat Precautions: Fall. Standard. Activity as tolerated. Patient Profile/Admitting Diagnosis: Reji is a 65-year-old male with lung cancer who presented to the ED on 05/02/2021 due to worsening shortness of breath, right LE pain, and generalized weakness. Patient is diagnosed with metastatic lung cancer, hypoxia, and leukocytosis PMHX: Medical History (Updated 05/04/21 @ 23:34 by DANNA Arroyo) BPH (benign prostatic hyperplasia) Cyst Depression Irritable bowel syndrome with diarrhea Lung cancer Metastatic lung cancer (metastasis from lung to other site) Osteoarthritis Teeth missing Tubular adenoma of colon Surgical History (Updated 04/28/21 @ 14:34 by Keisha Houston) Colonoscopy - IV Sedation (07/27/16) History of Oswaldo fundoplication (02/08/16) Social History/Home Situation: Lives with sister and [id number] in a private home without steps to enter. Intermittently uses a FWW with all mobility ADLs. Did not have oxygen supplementation [employer]. Equipment Owned/DME: FWW Subjective: Agreeable to PT consult and walking with PT and RT Cresencio. Reports that he wants to take his time and makes sure that his R leg is ready as it has increasingly been sensitive to touch and weight bearing. Complained about being out of breath during walking activity. Agreeable to having PT services as recommended. Objective: General Observation: Oxygen supplementation via NC turned off. IV in R UE. Numerous flat red patches scattered in trunk and B LE. Dyspneic at rest and with conversation. Mental Status: Alert and oriented as to person, place, time, and purpose. Able to pay attention, focus, and respond appropriately. Signs of depression observed. Pain:5/10 in R LE with weight bearing and with palpation Vital Signs: Oxygen saturation satyed at 90% throughout 20 feet of ambulation using the FWW ROM: Right Upper Extremity: Shoulder Flexion WFL. Shoulder abduction WFL. Elbow flexion WFL. Wrist flexion WFL. Functional opening and closing of hand WFL. Left Upper Extremity: Shoulder Flexion WFL. Shoulder abduction WFL. Elbow flexion WFL. Wrist flexion WFL. Functional opening and closing of hand WFL. Right Lower Extremity: Hip flexion WFL. Hip abduction WFL. Knee flexion WFL. Ankle dorsiflexion WFL. Ankle plantarflexion WFL. Left Lower Extremity: Hip flexion WFL. Hip abduction WFL. Knee flexion WFL. Ankle dorsiflexion WFL. Ankle plantarflexion WFL. Strength: Right Upper Extremity: Shoulder flexors 4-/5. Shoulder abductors 4-/5. Elbow flexors 4-/5. Elbow extensors 4-/5. Business Law Instructor strong. Left Upper Extremity: Shoulder flexors 4-/5. Shoulder abductors 4-/5. Elbow flexors 4-/5. Elbow extensors 4-/5. Business Law Instructor strong. Right Lower Extremity: Hip flexors 4-/5. Hip abductors 4-/5. Knee flexors 4-/5. Knee extensors 4-/5. Ankle dorsiflexors 4-/5. Ankle plantarflexors 4-/5. Left Lower Extremity: Hip flexors 4-/5. Hip abductors 4-/5. Knee flexors 4-/5. Knee extensors 4-/5. Ankle dorsiflexors 4-/5. Ankle plantarflexors 4-/5. Bed Mobility/Transfers: Supine to sit with hand-held assist with HOB at 45 degrees Sit to supine with standby assist Sit to stand with contact-guard assist Stand to sit with contact-guard assist Gait: Instructed patient with level surface ambulation of 20 feet requiring contact-guard assist. Ksenia decreased. Step height decreased. Step length decreased. Oxygen saturation stayed at 90% on room air throughout activity with HR high of 122 bpm. Patient did appear anxious and short of breath. Balance: Static Sitting: Normal Dynamic Sitting: Normal Static Standing: Fair Dynamic Standing: Fair Special Tests: Mobility Limitations Standardized Measure [facility] AM-PAC 6 clicks Basic Mobility Inpatient Short Form: Raw Score: 20 CMS Score: 36% deficit Informed Consent/Education: Patient was instructed in purpose of PT consult and plan of care. Agreeable to proceed with established PT POC to achieve personal goals. Assessment: R LE pain and anxiety limit activity performance. Oxygen saturation remained within normal limits on room air during gait oximetry. Will trial use of 4WW to provide a ready surface to sit onto at home. Will benefit from strengthening while here. May continue with PT at the SNF or in the home. Patient presents with clinical signs and symptoms consistent with current/admitting diagnoses that have resulted to mobility limitations, gait instability, generalized weakness, and overall ADL decline as demonstrated by the following impairment level findings: 1. Decreased strength to B UE/LE major muscle groups 2. Impaired sitting/standing balance 3. Impaired activity tolerance 4. Shortness of breath 5. R LE pain Impairments are contributing to the following functional limitations: 1. Decline in bed mobility skills 2. Decline in transfer skills 3. Difficulty with ambulation without assistive device and physical assistance 4. Increased completion time for mobility ADL performance 5. Increased risk for falls Patient is assessed as a 60872 moderate complexity based on the following: History: 65-year-old male with past medical history as indicated above Examination: Demonstrable impairment in strength, balance, and mobility level with underlying impairments and functional limitations as exhibited above as well as deficit score of 36% utilizing the [facility] Mobility Inpatient Short Form Presentation: Evolving Decision Makin moderate complexity Goals: Goals X1 week 1. Supine-Sit independent 2. Sit-Supine independent 3. Sit-Stand independent 4. Stand-Sit independent with 4 wheeled walker 5. Bed-Chair independent with 4 wheeled walker 6. Chair-Bed independent with 4 wheeled walker 7. Independent gait on level surface with use of 4 wheeled walker for at least 30 feet without report of pain nor dyspnea 8. Independent with home exercise program 9. Good static and dynamic standing balance/tolerance Plan of Care/Treatment Plan: 1-2x/day, 7 days/week x 1 week. Plan of care has been reviewed with the [employer] providing the service under Physical Therapy direction. Initiate Physical Therapy intervention for pain management as needed, strengthening, bed mobility, transfers, gait, stairs, balance training, and use of assistive device. DISCHARGE RECOMMENDATIONS: Patient will benefit from home health PT services in order to progress mobility level using least restrictive assistive ambulatory device, assess home safety, identify additional equipment needs, and establish a functional maintenance program that will increase ability of patient to remain at home. TREATMENT CODE/TIME: 73300 x 20 minutes, 99349 x 7 minutes beginning at 11:35 AM. Thank you for the opportunity to participate in the care of this patient. Izabela Cordoba PT, DPT, CLT [facility], [place]
--- NOTE | 2021-05-05 12:40 | PTTR_ITS ---
Date of service: 05/05/21 Time of Service: 12:40 PT Notes Visit Reasons: Hypoxia, Metastatic Lung Cancer Physical Therapy Inpatient Treatment Note Date: 05/05/2021 Precautions: Fall. Standard. Activity as tolerated. Subjective: Expressed fears about dying and about all the unknowns he is about to face. Hoping that he will have somebody to direct him through this scary times. R LE continues to be tender even to light touch. Agreeable to doing a second walk to determine how his oxygen level will change with activity. Objective: General Observation: Oxygen supplementation via NC turned off. IV in R UE. Numerous flat red patches scattered in trunk and B LE. Dyspneic at rest and with conversation. RT Sherron present for the testing. Mental Status: Alert and oriented as to person, place, time, and purpose. Able to pay attention, focus, and respond appropriately. Signs of depression observed. Pain:5/10 in R LE with weight bearing and with palpation Vital Signs: Oxygen saturation agian stayed at 90% throughout 20 feet of ambulation using the FWW Bed Mobility/Transfers: Supine to sit stand by assist Sit to supine with standby assist Sit to stand with contact-guard assist Stand to sit with contact-guard assist Gait: Instructed patient with level surface ambulation of 20 feet requiring contact- guard assist. Ksenia decreased. Step height decreased. Step length decreased. Oxygen saturation stayed at 90% on room air throughout activity with HR high of 125 bpm. Patient did appear anxious and short of breath again. Balance: Static Sitting: Normal Dynamic Sitting: Normal Static Standing: Fair Dynamic Standing: Fair Assessment: R LE pain and anxiety limit activity performance. Oxygen saturation remained within normal limits on room air during gait oximetry which corroborates same test done this morning . Will continue to monitor oxygen saturation with trial of 4WW to provide a ready surface to sit onto at home. Will benefit from strengthening while here. May continue with PT at the SNF or in the home. DISCHARGE RECOMMENDATIONS: Patient will benefit from home health PT services in order to progress mobility level using least restrictive assistive ambulatory device, assess home safety, identify additional equipment needs, and establish a functional maintenance program that will increase ability of patient to remain at home. TREATMENT CODE/TIME: 09345 x 25 minutes beginning at 12:40 PM.
--- NOTE | 2021-05-05 13:12 | DSE_ITS ---
Date of service: 05/05/21 Time of Service: 13:12 DS: Diagnosis Discharge Diagnosis (1) Hypoxia: Status: Acute (2) Lung cancer: Status: Chronic (3) Metastatic lung cancer (metastasis from lung to other site): Status: Acute (4) Leukocytosis: Status: Acute Discharge Plan Disposition Patient Disposition: [facility] W/HOME HEALTH SERVICE Condition: Improving Discharge Details Reason For Visit: Hypoxia, Metastatic Lung Cancer Admit Date/Time: 05/04/21 17:01 Admit Provider: Chadwick Vargas Attending Provider: Chadwick Vargas Primary Care Provider: Елена Silva Hospital Course Hospital Course: This 65-year-old male was recently diagnosed with metastatic lung cancer. It is in the right upper lobe with metastatic disease to the spine hip and adrenals. He was hospitalized at [facility] from April 12 until the . He says he used oxygen intermittently during that hospital stay but it was decided that he did not need oxygen at home. He has been having increasing shortness of breath and has had very poor appetite at home. He was living by himself but currently has family living with him. He has had some weight loss with a weight a few months ago recorded at 80 kg and now is about 71 kg. He has an appointment with oncology at [facility] on May 08. He is hoping to feel better and if he does not improve he does not think he will want to undergo much in the way of treatment. He knows he has extensive disease. He has pain in his back if he lays too long and has pain in his feet. He is switching doctors from the [facility] to [facility] in [place]. He has filled out paperwork to be a DNR status. [facility] He says he is not sure why he was not put on oxygen before he was discharged last week but it sounds like he was not meeting the criteria for home oxygen at that time. He state that he can only do 4-5 steps without getting extremely short of breath at the time of admission. 2 weeks ago he had hemoptysis but that is not occurring now. He has had some chills but no known fever. His oral intake has been poor for several weeks; eating only pudding and grapes. He was placed on marinol 2.5mg po BID as an outpt. His initial WBC count was 18. Zosyn and Vancomycin initiated. Creatinine and K+ were normal. CT chest/abd: 1. Slight further deterioration in the extensive neoplastic findings in the right hemithorax including further increase in size of the smaller independent lesion in the right lower lobe and there is also now a small unilateral right pleural effusion which was not evident on the prior study of 04/12/2021. 2. Small metastatic nodules in the opposite-left lung are again noted.No pleural effusion on the left side 3. Extensive right hilar and through and through mediastinal adenopathy again noted including extensive involvement of the aortopulmonic window. There is relative sparing of the left hilum. 4. Small-moderate size pericardial effusion again noted. 5. Left adrenal nodule again noted which is probably metastatic given the findings in the chest. 6. Blastic osseous metastases again noted in vertebral bodies, most prominent in T2 vertebral body. There is also extensive lytic disease in the right side of the sacrum again noted with breech of the cortex extending into the right sacroiliac joint and medially into the right side of the sacral canal. He required 2L O2 per NC at rest and remained, initially, very sedentary and weak. His O2 saturations decreased with ambulation and on 01/01/21 he was only able to ambulate for 20ft before becoming hypoxic and weak. The following day, however, he walked further with standby assist and his O2 saturations remained above 90%. He did have intermittent fevers. Azithromycin was added to his regimen. His marinol was increased to 5mg BID. His appetite did improve but was still inadequate for maintaining nutritional/caloric support. He will d/c to home with resumption of home health services. His sister is going to stay with him. His son is also supportive and nearby. His oncolocy appt is the following Saturday. Resume Home Health services. Home Meds and New Rx's Prescriptions: New dronabinol [Marinol] 5 mg capsule 5 mg PO BID Qty: 30 RF: 0 diphenhydramine HCl 25 mg Capsule 25 mg PO HS Qty: 0 RF: 0 pyridoxine (vitamin B6) [Vitamin B-6] 25 mg Tablet 100 mg PO DAILY Qty: 0 RF: 0 lorazepam 0.5 mg Tablet 0.5 mg PO BID PRN PRNQty: 30 RF: 0 hydrocortisone 1 % Cream 1 applic topical TID Qty: 28.35 RF: 0 amoxicillin-pot clavulanate [Augmentin] 875-125 mg tablet 1 tab PO BID Qty: 10 RF: 0 Continued albuterol sulfate 2.5 mg /3 mL (0.083 %) solution for nebulization 2.5 mg inhalation Q4H PRN PRNRF: 0 hydromorphone 2 mg tablet 2 mg PO QID RF: 0 pantoprazole 40 mg tablet,delayed release (DR/EC) 40 mg PO DAILY RF: 0 albuterol sulfate 90 mcg/actuation HFA aerosol inhaler 2 inh INHALATION Q6H PRN PRNRF: 0 Flovent HFA 110 mcg/actuation Hfa Aerosol Inhaler 2 puff INHALATION BID RF: 0 Changed acetaminophen 500 mg tablet 500 mg PO Q4H PRNQty: 0 RF: 0 Discontinued dronabinol 2.5 mg capsule 2.5 mg PO BIDWMEAL RF: 0 Discharge Instructions Instructions: Lung Cancer (DC) Stand Alone Forms: Nursing Discharge Form Referrals: Елена Silva MD, [place] [Primary Care Provider] - 05/11/21 1:00 pm Activity:: Activity as Tolerated Equipment/Supplies:: No Equipment Needed Diet:: As Tolerated DS: Summary Time Spent with Patient providing and/or coordinating discharge services: Greater than 30 minutes Status at Discharge Functional status at discharge: independent ambulation Overall status at discharge: patient is not back to baseline Mental Status: mental status grossly normal Speech and Movement: speech and movement normal Mood: anxious mood Affect: anxious affect Exam Const General: cooperative, no acute distress and other (Less fatigued appearing.) Nutritional Appearance: average body habitus Orientation: alert and oriented x3 Resp Effort & Inspection: normal respiratory effort Auscultation: clear to auscultation bilaterally and diminished lung sounds Cardio Rate: regular rate Rhythm: regular rhythm Heart Sounds: S1 normal and S2 normal GI Palpation: soft and nontender Auscultation: normoactive bowel sounds Skin Rashes: other (scattered mildly erythematous papular rash on feet / thighs) Extrem General: no pedal edema and no calf tenderness Psych Mental Status: mental status grossly normal Speech and Movement: speech and movement normal Mood: anxious mood Affect: anxious affect DS: Data Vitals/I&O Vitals and I&O: Vital Signs Temperature 37.0 C 05/05/21 11:54 Temperature Source Skin 05/05/21 11:54 Pulse 120 H 05/05/21 11:54 Pulse Rhythm Regular 05/05/21 01:17 Pulse 136 H 05/02/21 21:20 Respiratory Rate 22 05/05/21 11:54 Respiratory Effort Labored 05/05/21 01:17 Respiratory Depth Shallow 05/05/21 01:17 Respiratory Pattern Tachypnea 05/05/21 01:17 Blood Pressure 111/57 L 05/05/21 11:54 Blood Pressure Mean 68 05/02/21 21:01 Blood Pressure Position Sitting 05/02/21 18:00 Pulse Oximetry 91 L 05/05/21 12:05 Oxygen Delivery Method Room Air 05/05/21 12:05 Oxygen Flow Rate 0 05/05/21 12:05 Pain Level 1 05/05/21 11:54 Comment 05/05/21 11:54 Intake & Output 05/04/21 05/05/21 05/05/21 23:59 11:59 23:59 Intake Total 1660 / 3768.333 200 / 200 Output Total 450 / 1550 600 / 600 Balance 1210 / 2218.333 -400 / -400 Weight 71.1 kg Intake: IV 1600 / 3708.333 200 / 200 Oral 60 / 60 Output: Urine 450 / 1550 600 / 600 Other: Urine Color Light Jeanie Yellow Urine Appearance Clear Clear Urine Odor Normal Voiding Methods Toilet Urinal Data Completed and Pending Labs on day of discharge: Labs from last 24 hours 05/05/21 05/05/21 05/05/21 06:46 06:46 06:46 WBC 14.77 H RBC 3.43 L Hgb 10.1 L Hct 31.3 L MCV 91.3 MCH 29.4 MCHC 32.3 RDW 13.4 Plt Count 130 MPV 10.2 Immature Gran % 0.7 Neutrophils % 89.6 Lymphocytes % 1.0 Monocytes % 6.8 Eosinophils % 1.8 Basophils % 0.1 Nucleated RBC % 0 Absolute Neutrophils 13.23 H Absolute Lymphocytes 0.15 L Absolute Monocytes 1.00 H Absolute Eosinophils 0.27 Absolute Basophils 0.01 Sodium 136 Potassium 2.8 L* Chloride 103 Carbon Dioxide 26.5 Anion Gap 6.5 BUN 7 Creatinine 0.7 Estimated GFR/1.73 m2 >= 60.00 Glucose 115 H Calcium 7.8 L Vancomycin Trough 16.5 Preliminary micro results at discharge 05/03/21 22:40 Blood Culture - Preliminary Blood NO GROWTH 24 HOURS 05/03/21 22:30 Blood Culture - Preliminary Blood NO GROWTH 24 HOURS PFSH Medical History BPH (benign prostatic hyperplasia) Cyst Depression Irritable bowel syndrome with diarrhea Lung cancer Metastatic lung cancer (metastasis from lung to other site) Osteoarthritis Teeth missing Tubular adenoma of colon Surgical History Colonoscopy - IV Sedation (07/27/16) History of Oswaldo fundoplication (02/08/16) Family History Mother No problems noted. Father No problems noted. Sister No problems noted. Sister No problems noted. Sister Personal history of malignant neoplasm Sister No problems noted. Brother No problems noted. Brother Personal history of malignant neoplasm Brother No problems noted. Brother No problems noted. Brother No problems noted. Son No problems noted. Social History Smoking/Tobacco Use Status: Former Tobacco Use tobacco type: cigarettes Second Hand Exposure: Yes Smoking risk assessment performed?: Yes Alcohol Intake: former Drug use: Never Substance use type: does not use Household members: family Housing: house Do you need help understanding health information?: Always Pets and animals: Yes Pets and animals: cat(s) Sexually active: No Do you think of yourself as: straight/heterosexual Current gender identity: male What is your relationship status?: How often do you get together with friends or relatives?: never How often do you attend protestant or presybeterian services?: decline to answer Do you belong to any clubs or organized social groups?: yes Panel score (0-1 are the most socially isolated patients): 1 Special alejandra needs: No Seatbelt use: always Helmet use: No Drive intox or ride w/intox food service driver: No Do you feel safe at home: Yes Do you feel safe in your relationship?: Yes
[2021-05-05] MEDS: Dronabinol 2.5 MG CAP 5 MG PO ×2 (13:43→17:16)
[2021-05-05 14:46] LABS: ALT 13 U/L (16-63); AST 9 U/L (15-37); Albumin 1.7 g/dL (3.4-5.0); Alkaline Phosphatase 76 U/L (46-116); Bilirubin, Total 0.3 mg/dL (0.2-1.0); Magnesium 1.7 mg/dL (1.8-2.4); Total Protein 4.4 g/dL (6.4-8.2)
[2021-05-05] MEDS: diphenhydrAMINE 50 MG/ML VIAL 25 MG IVP (14:50)
[2021-05-05] MEDS: AZITHROMYCIN 500 MG in Normal Saline 250 ML 250 MG IVPB (17:25)
[2021-05-05] MEDS: Acetaminophen 500 MG TAB 1000 MG PO (20:20)
[2021-05-05] MEDS: Melatonin 3 MG TAB PO (21:38)
[2021-05-05] MEDS: diphenhydrAMINE 25 MG CAP PO (21:38)
[2021-05-06] VITALS (10 sets, daily range): BP systolic 94–111; BP diastolic 55–64; PULSE 100–122; RESP 7–19; TEMP 36.2–38.3; O2SAT 90–96
[2021-05-06] MEDS: Normal Saline 1,000 ML 125 ML IV (01:28)
[2021-05-06] MEDS: Normal Saline Flush 10 ML SYR IVP (01:51)
[2021-05-06] MEDS: diphenhydrAMINE 50 MG/ML VIAL 25 MG IVP ×2 (01:51→11:10)
[2021-05-06] MEDS: LORazepam 0.5 MG TAB PO (01:52)
[2021-05-06] MEDS: Betamethasone Dip. 0.05% CR 15 GM TUBE TP ×2 (03:58→07:57)
[2021-05-06] MEDS: VANCOMYCIN/WATER (PEG) 1 GM/200 ML BAG IV ×2 (04:26→14:50)
[2021-05-06] MEDS: Albuterol/Ipratropium 3 ML UPD VIAL UPD ×2 (06:31→15:57)
[2021-05-06 07:14] LABS: Abs Immature Grans 0.08 10^3/uL (0.0-0.06); Absolute Basophil Count 0.02 10^3/uL (0.0-0.2); Absolute Lymphocyte Count 0.14 10^3/uL (1.2-3.4); Absolute Monocyte Count 0.92 10^3/uL (0.1-0.8); Basophils % 0.2; Eosinophils % 3.4; HGB 10.5 g/dL (13.5-17.5); Immature Grans % 0.7; Lymphocytes % 1.2; MCH 29.3 pg (27.0-33.0); MCHC 31.8 % (32.0-36.0); MCV 92.2 fL (80-95); Monocytes % 7.9; Neutrophils % 86.6; Nucleated RBC 0 %; Platelet Count 135 10^3/uL (130-400); RBC 3.58 10^6/uL (4.36-5.78); RDW 13.4 % (11.8-14.1); RDW-SD 45.3 fL; WBC 11.64 10^3/uL (4.4-10.8)
[2021-05-06 07:16] LABS: Absolute Neutrophil Count 10.08 10^3/uL (1.2-6.7)
[2021-05-06 07:20] LABS: Anion Gap 5.6 mmol/L (3-11); BUN 4 mg/dL (7-18); CO2 29.4 mmol/L (21.0-32.0); CREATININE 0.7 mg/dL (0.70-1.30); Calcium 8.2 mg/dL (8.5-10.1); Chloride 103 mmol/L (98-107); Glucose 99 mg/dL (74-106); Sodium 138 mmol/L (136-145)
[2021-05-06] MEDS: Simethicone 80 MG CHEW 160 MG PO ×2 (07:56→13:33)
[2021-05-06] MEDS: Pantoprazole 40 MG TABCR PO (07:56)
[2021-05-06] MEDS: HYDROmorphone 2 MG TAB PO ×3 (07:57→15:58)
[2021-05-06] MEDS: Hydrocortisone 1% CR 30 GM TUBE TP (07:58)
[2021-05-06] MEDS: Mometasone 220 MCG 14 DOSE INHALER 2 PUFF IH (08:08)
[2021-05-06 09:21] LABS: Magnesium 1.9 mg/dL (1.8-2.4)
--- NOTE | 2021-05-06 10:26 | NUR.NOTE ---
Nursing Note: Coreen, sister, requested to be called prior to pt discharge at the numbers: cell [phone], home [phone]
--- NOTE | 2021-05-06 10:53 | RESPIRATORY ---
Pt does not require oxygen with ambulation and maintained Sp02 @ 95%.
[2021-05-06] MEDS: Dronabinol 2.5 MG CAP 5 MG PO ×2 (11:09→15:57)
[2021-05-06] MEDS: Potassium Chloride 20 MEQ TABCR 40 MEQ PO ×2 (11:10→15:58)
--- NOTE | 2021-05-06 13:08 | PT.INTREAT ---
Date of service: 05/06/21 Time of Service: 11:40 PT Notes Visit Reasons: Hypoxia, Metastatic Lung Cancer Inpatient Physical Therapy Treatment Note [facility] Date: 05/06/2021 PRECAUTIONS: Activity as tolerated SUBJECTIVE: Stated he needs his O2 tubing in his nose, due to difficulty with breathing. OBJECTIVE: PAIN: No complaints of pain, but did complain of SOB but O2 level remained above 91% throughout session. BED MOBILITY/TRANSFERS Rolling L/R: I Supine-sit: Hand held assist Sit-supine:CGA Sit-stand: CGA Stand-sit: CGA GAIT Assistive Device: 4WW Weight bearing: FWB Assist: CGA Distance: 25ft O2 readings 95% dropping to 91% while walking. Did have O2 nasal tubing in nose, but was on room air only. HR increased to 119 b/m with ambulation. ASSESSMENT: Tolerated ambulation fair, but does fatigue easily. Did well with 4WW today instead of FWW. PLAN: Continue with current plan of care, as able to tolerate. Will discuss patient's need to have nasal tubing attached, despite not having turned on with RT. TREATMENT CODE/TIME: 23579, 20 minutes, began at 11:40 am
--- NOTE | 2021-05-06 15:16 | W.PM.DS.N ---
Date of service: 05/06/21 Time of Service: 15:16 DS: Diagnosis Discharge Diagnosis (1) Hypoxia: Status: Resolved (2) Pneumonia: Status: Suspected (3) Metastatic lung cancer (metastasis from lung to other site): Status: Acute (4) Leukocytosis: Status: Acute (5) Pruritic rash: Status: Acute (6) Pericardial effusion: Status: Chronic (7) COVID-19 ruled out by laboratory testing: Status: Ruled-out Discharge Plan Disposition Patient Disposition: [facility] W[facility]HOME HEALTH SERVICE Condition: Improving Discharge Details Reason For Visit: Hypoxia, Metastatic Lung Cancer Admit Date/Time: 05/04/21 17:01 Admit Provider: Chadwick Vargas Attending Provider: Chadwick Vargas Primary Care Provider: Елена Silva Hospital Course Hospital Course: Mr Nix is a 65-year-old male who was recently diagnosed with metastatic lung cancer who was admitted to [facility] hospitalist service on 05/02/21 with shortness of breath felt to be predominantly due to his metastatic lung cancer with hypoxia on presentation, felt to be due to a possible pneumonia. His lung cancer is in the right upper lobe with metastatic disease to the spine hip and adrenals. He was hospitalized at [facility] from April 12 until the . He says he used oxygen intermittently during that hospital stay but it was decided that he did not need oxygen at home. He had been having increasing shortness of breath and has had very poor appetite at home. He was living by himself but currently has family living with him. He has had some weight loss with a weight a few months ago recorded at 80 kg and now is about 71 kg. He has an appointment with oncology on May 08. He is hoping to feel better and if he does not improve he does not think he will want to undergo much in the way of treatment. He knows he has extensive disease. He has pain in his back if he lays too long and has pain in his feet. He is switching doctors from the [facility] to [facility] in [place]. He has filled out paperwork to be a DNR status. He stated that he could only do 4-5 steps without getting extremely short of breath at the time of admission. 2 weeks ago he had hemoptysis but this has not recurred. He has had some chills but no known fever. His oral intake has been poor for several weeks; eating only pudding and grapes. He was placed on marinol 2.5mg po BID as an outpt. His initial WBC count was 18. Zosyn and Vancomycin were empirically initiated. Creatinine and K+ were normal. CT chest/abd: 1. Slight further deterioration in the extensive neoplastic findings in the right hemithorax including further increase in size of the smaller independent lesion in the right lower lobe and there is also now a small unilateral right pleural effusion which was not evident on the prior study of 04/12/2021. 2. Small metastatic nodules in the opposite-left lung are again noted.No pleural effusion on the left side 3. Extensive right hilar and through and through mediastinal adenopathy again noted including extensive involvement of the aortopulmonic window. There is relative sparing of the left hilum. 4. Small-moderate size pericardial effusion again noted. 5. Left adrenal nodule again noted which is probably metastatic given the findings in the chest. 6. Blastic osseous metastases again noted in vertebral bodies, most prominent in T2 vertebral body. There is also extensive lytic disease in the right side of the sacrum again noted with breech of the cortex extending into the right sacroiliac joint and medially into the right side of the sacral canal. He required 2L O2 per NC at rest and remained, initially, very sedentary and weak. His O2 saturations decreased with ambulation and on 01/01/21 he was only able to ambulate for 20ft before becoming hypoxic and weak. The following day, however, he walked further with standby assist and his O2 saturations remained above 90%. Simialarly, on the day of discharge he is not found to require oxygen at rest or on ambulation. He would benefit from liquid morphine on discharge. He would be willing to consider hospice depending on the outcome of his appointment with Oncology on Saturday. He did have intermittent fevers. Azithromycin was added to his regimen. His marinol was increased to 5mg BID. His appetite did improve but was still inadequate for maintaining nutritional/caloric support. He is going home with a prescription to complete a course of augmentin. He will d/c to home with resumption of home health services. His sister is going to stay with him. His son is also supportive and nearby. His oncolocy appt is the following Saturday. Home Meds and New Rx's Prescriptions: New dronabinol [Marinol] 5 mg capsule 5 mg PO BID Qty: 30 RF: 0 diphenhydramine HCl 25 mg Capsule 25 mg PO HS Qty: 0 RF: 0 pyridoxine (vitamin B6) [Vitamin B-6] 25 mg Tablet 100 mg PO DAILY Qty: 0 RF: 0 lorazepam 0.5 mg Tablet 0.5 mg PO BID PRN PRNQty: 30 RF: 0 hydrocortisone 1 % Cream 1 applic topical TID Qty: 28.35 RF: 0 amoxicillin-pot clavulanate [Augmentin] 875-125 mg tablet 1 tab PO BID Qty: 10 RF: 0 morphine concentrate 100 mg/5 mL (20 mg/mL) solution 5 mg PO Q6H PRN (Reason: dyspnea) Qty: 15 RF: 0 Continued albuterol sulfate 2.5 mg /3 mL (0.083 %) solution for nebulization 2.5 mg inhalation Q4H PRN PRNRF: 0 hydromorphone 2 mg tablet 2 mg PO QID RF: 0 pantoprazole 40 mg tablet,delayed release (DR/EC) 40 mg PO DAILY RF: 0 albuterol sulfate 90 mcg/actuation HFA aerosol inhaler 2 inh INHALATION Q6H PRN PRNRF: 0 Flovent HFA 110 mcg/actuation Hfa Aerosol Inhaler 2 puff INHALATION BID RF: 0 Changed acetaminophen 500 mg tablet 500 mg PO Q4H PRNQty: 0 RF: 0 Discontinued dronabinol 2.5 mg capsule 2.5 mg PO BIDWMEAL RF: 0 Discharge Instructions Instructions: Amoxicillin/Clavulanate Potassium (By mouth), Morphine, Rapid Release (By mouth), Lung Cancer (DC) Additional Instructions: Return to the hospital with any worsening shortness of breath that is not helped by morphine, if you have a fever, bleeding, chest pain, shortness of breath. Care Plan Goals: Home with resumption of home health services Stand Alone Forms: Nursing Discharge Form Referrals: Елена Silva MD, [place] [Primary Care Provider] - 05/11/21 1:00 pm Activity:: Activity as Tolerated Equipment/Supplies:: No Equipment Needed Diet:: As Tolerated Discharge Orders Discharge Orders: Discharge Order (Routine); Ordered 05/06/21 Ordered By: Humera Marie DS: Summary Time Spent with Patient providing and/or coordinating discharge services: Greater than 30 minutes Status at Discharge Functional status at discharge: independent ambulation Overall status at discharge: patient is progressing back to baseline Mental Status: mental status grossly normal Speech and Movement: speech and movement normal Mood: congruent mood and anxious mood Affect: normal affect Exam Narrative Exam Narrative: General:Pleasant elderly male with pursed lip breathing, A&Ox3 HEENT: EOMI, MMM Heart: RRR Lungs: diminished breath sounds with expiratory wheezing B Abdomen: soft, nontender, nondistended Extremities: trace edema BLE's, pruritic nodules at B ankles and on BLEs' Psych Mental Status: mental status grossly normal Speech and Movement: speech and movement normal Mood: congruent mood and anxious mood Affect: normal affect DS: Data Vitals/I&O Vitals and I&O: Vital Signs Temperature 36.9 C 05/06/21 11:40 Temperature Source Temporal Artery Scan 05/06/21 11:40 Pulse 110 H 05/06/21 11:40 Pulse Rhythm Regular 05/06/21 11:18 Pulse 136 H 05/02/21 21:20 Respiratory Rate 19 05/06/21 11:40 Respiratory Effort 05/06/21 11:18 Respiratory Depth Normal 05/06/21 11:18 Respiratory Pattern Normal 05/06/21 11:18 Blood Pressure 108/64 05/06/21 11:40 Blood Pressure Mean 68 05/02/21 21:01 Blood Pressure Position Sitting 05/02/21 18:00 Pulse Oximetry 95 05/06/21 11:40 Oxygen Delivery Method Room Air 05/06/21 11:40 Oxygen Flow Rate 0 05/06/21 11:40 Pain Level 1 05/06/21 11:40 Comment 05/06/21 03:27 Intake & Output 05/05/21 05/06/21 05/06/21 23:59 11:59 23:59 Intake Total 1550 / 3050 400 / 880 480 / 880 Output Total 1200 / 1800 400 / 400 Balance 350 / 1250 0 / 480 480 / 480 Weight 72.847 kg Intake: IV 1550 / 3050 400 / 400 Oral 480 / 480 Output: Urine 1200 / 1800 400 / 400 Other: Urine Color Straw Yellow Urine Appearance Clear Clear Urine Odor Normal Normal Voiding Methods Urinal Urinal Data Completed and Pending Completed studies during hospitalization [Text1]: CXR: Volume loss and opacification right upper lobe suspicious for central neoplasm. Chest CT scan recommended. There is also infiltrate in the right lung base.Left lung appears clear. There are no pleural effusions. CT chest/ abdomen/pelvis: 1. Slight further deterioration in the extensive neoplastic findings in the right hemithorax including further increase in size of the smaller independent lesion in the right lower lobe and there is also now a small unilateral right pleural effusion which was not evident on the prior study of 04/12/2021. 2. Small metastatic nodules in the opposite-left lung are again noted.No pleural effusion on the left side 3. Extensive right hilar and through and through mediastinal adenopathy again noted including extensive involvement of the aortopulmonic window. There is relative sparing of the left hilum. 4. Small-moderate size pericardial effusion again noted. 5. Left adrenal nodule again noted which is probably metastatic given the findings in the chest. 6. Blastic osseous metastases again noted in vertebral bodies, most prominent in T2 vertebral body. There is also extensive lytic disease in the right side of the sacrum again noted with breech of the cortex extending into the right sacroiliac joint and medially into the right side of the sacral canal. Labs on day of discharge: Labs from last 24 hours 05/06/21 05/06/21 05/05/21 06:15 06:15 06:46 WBC 11.64 H RBC 3.58 L Hgb 10.5 L Hct 33.0 L MCV 92.2 MCH 29.3 MCHC 31.8 L RDW 13.4 Plt Count 135 MPV 10.0 Immature Gran % 0.7 Neutrophils % 86.6 Lymphocytes % 1.2 Monocytes % 7.9 Eosinophils % 3.4 Basophils % 0.2 Nucleated RBC % 0 Absolute Neutrophils 10.08 H Absolute Lymphocytes 0.14 L Absolute Monocytes 0.92 H Absolute Eosinophils 0.40 Absolute Basophils 0.02 Sodium 138 136 Potassium 3.0 L 2.8 L* Chloride 103 103 Carbon Dioxide 29.4 26.5 Anion Gap 5.6 6.5 BUN 4 L 7 Creatinine 0.7 0.7 Estimated GFR/1.73 m2 >= 60.00 >= 60.00 Glucose 99 115 H Calcium 8.2 L 7.8 L Magnesium 1.9 1.7 L Total Bilirubin 0.3 AST 9 L ALT 13 L Alkaline Phosphatase 76 Total Protein 4.4 L Albumin 1.7 L 05/05/21 06:46 WBC 14.77 H RBC 3.43 L Hgb 10.1 L Hct 31.3 L MCV 91.3 MCH 29.4 MCHC 32.3 RDW 13.4 Plt Count 130 MPV 10.2 Immature Gran % 0.7 Neutrophils % 89.6 Lymphocytes % 1.0 Monocytes % 6.8 Eosinophils % 1.8 Basophils % 0.1 Nucleated RBC % 0 Absolute Neutrophils 13.23 H Absolute Lymphocytes 0.15 L Absolute Monocytes 1.00 H Absolute Eosinophils 0.27 Absolute Basophils 0.01 Sodium Potassium Chloride Carbon Dioxide Anion Gap BUN Creatinine Estimated GFR/1.73 m2 Glucose Calcium Magnesium Total Bilirubin AST ALT Alkaline Phosphatase Total Protein Albumin Preliminary micro results at discharge 05/03/21 22:40 Blood Culture - Preliminary Blood NO GROWTH 48 HOURS 05/03/21 22:30 Blood Culture - Preliminary Blood NO GROWTH 48 HOURS [facility] Medical History BPH (benign prostatic hyperplasia) Cyst Depression Irritable bowel syndrome with diarrhea Lung cancer Metastatic lung cancer (metastasis from lung to other site) Osteoarthritis Teeth missing Tubular adenoma of colon Surgical History Colonoscopy - IV Sedation (07/27/16) History of Oswaldo fundoplication (02/08/16) Family History (Updated 05/06/21 @ 13:39 by Kelly Casillas) Mother Liver cancer Sister Colon cancer Diabetes Hyperlipidemia Hypertension Brother , 16 No problems noted. Brother , 7 No problems noted. Brother , 13 No problems noted. Sister No problems noted. Sister Alcohol abuse Substance abuse Father , 95 No problems noted. Son No problems noted. Sister No problems noted. Brother No problems noted. Brother , 45 Alcohol abuse Brain cancer Liver cancer Substance abuse Social History Smoking/Tobacco Use Status: Former Tobacco Use tobacco type: cigarettes Second Hand Exposure: Yes Smoking risk assessment performed?: Yes Alcohol Intake: former Drug use: Never Substance use type: does not use Household members: family Housing: house Do you need help understanding health information?: Always Pets and animals: Yes Pets and animals: cat(s) Sexually active: No Do you think of yourself as: straight/heterosexual Current gender identity: male What is your relationship status?: How often do you get together with friends or relatives?: never How often do you attend jew or mu-ism services?: decline to answer Do you belong to any clubs or organized social groups?: yes Panel score (0-1 are the most socially isolated patients): 1 Special alejandra needs: No Seatbelt use: always Helmet use: No Drive intox or ride w/intox feedmobile driver: No Do you feel safe at home: Yes Do you feel safe in your relationship?: Yes
--- NOTE | 2021-05-08 17:13 | INDS_ITS ---
Date of service: 05/08/21 Time of Service: 17:13 PT Notes Visit Reasons: Hypoxia, Metastatic Lung Cancer Physical Therapy Inpatient Discharge Summary Date: 05/08/2021 Dates of service: 05/05/2021 through 06/06/2021 This is a clinical summary of care provided for the duration of dates listed above. No charge was made in the completion of this documentation. Referring Doctor: David Ball MD PT Orders: PT CONSULT: Eval/treat Precautions: Fall. Standard. Activity as tolerated. Patient Profile/Admitting Diagnosis: Reji is a 65-year-old male with lung cancer who presented to the ED on 05/02/2021 due to worsening shortness of breath, right LE pain, and generalized weakness. Patient is diagnosed with metastatic lung cancer, hypoxia, and leukocytosis PMHX: Medical History (Updated 05/04/21 @ 23:34 by DANNA Arroyo) BPH (benign prostatic hyperplasia) Cyst Depression Irritable bowel syndrome with diarrhea Lung cancer Metastatic lung cancer (metastasis from lung to other site) Osteoarthritis Teeth missing Tubular adenoma of colon Surgical History (Updated 04/28/21 @ 14:34 by Keisha Houston) Colonoscopy - IV Sedation (07/27/16) History of Oswaldo fundoplication (02/08/16) Social History/Home Situation: Lives with sister and [id number] in a private home without steps to enter. Intermittently uses a FWW with all mobility ADLs. 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 Equipment Owned/DME: FWW Subjective: NT. See most recent ANDROID FRAMEWORK DEVELOPER notes. Objective: General Observation: NT. See most recent ANDROID FRAMEWORK DEVELOPER notes. Mental Status: NT. See most recent ANDROID FRAMEWORK DEVELOPER notes. Pain: NT. See most recent ANDROID FRAMEWORK DEVELOPER notes. Vital Signs: NT. See most recent ANDROID FRAMEWORK DEVELOPER notes. ROM: Right Upper Extremity: Shoulder Flexion WFL. Shoulder abduction WFL. Elbow flexion WFL. Wrist flexion WFL. Functional opening and closing of hand WFL. Left Upper Extremity: Shoulder Flexion WFL. Shoulder abduction WFL. Elbow flexion WFL. Wrist flexion WFL. Functional opening and closing of hand WFL. Right Lower Extremity: Hip flexion WFL. Hip abduction WFL. Knee flexion WFL. Ank le dorsiflexion WFL. Ankle plantarflexion WFL. Left Lower Extremity: Hip flexion WFL. Hip abduction WFL. Knee flexion WFL. Ankle dorsiflexion WFL. Ankle plantarflexion WFL. Strength: Right Upper Extremity: Shoulder flexors 4-/5. Shoulder abductors 4-/5. Elbow flexors 4-/5. Elbow extensors 4-/5. Allergist/Pediatric Pulmonologist strong. Left Upper Extremity: Shoulder flexors 4-/5. Shoulder abductors 4-/5. Elbow flexors 4-/5. Elbow extensors 4-/5. Allergist/Pediatric Pulmonologist strong. Right Lower Extremity: Hip flexors 4-/5. Hip abductors 4-/5. Knee flexors 4-/5. Knee extensors 4-/5. Ankle dorsiflexors 4-/5. Ankle plantarflexors 4-/5. Left Lower Extremity: Hip flexors 4-/5. Hip abductors 4-/5. Knee flexors 4-/5. Knee extensors 4-/5. Ankle dorsiflexors 4-/5. Ankle plantarflexors 4-/5. Bed Mobility/Transfers: Supine to sit with hand-held assist with HOB at 45 degrees Sit to supine with standby assist Sit to stand with contact-guard assist Stand to sit with contact-guard assist Gait: Instructed patient with level surface ambulation of 20 feet requiring contact- guard assist. Ksenia decreased. Step height decreased. Step length decreased. Oxygen saturation stayed at 90% on room air throughout activity with HR high of 122 bpm. Patient did appear anxious and short of breath. Balance: Static Sitting: Normal Dynamic Sitting: Normal Static Standing: Fair Dynamic Standing: Fair Assessment: R LE pain and anxiety limit activity performance. Oxygen saturation remained within normal limits on room air during gait oximetry. Will trial use of 4WW to provide a ready surface to sit onto at home. Oxygen saturation 91 through 95% on room air with ambulation activity using the front wheeled walker with a mild S OB and HR of 119 bpm with PT as of 05/06/2021. Patient presents with clinical signs and symptoms consistent with current/admitt ing diagnoses that have resulted to mobility limitations, gait instability, generalized weakness, and overall ADL decline as demonstrated by the following impairment level findings: 1. Decreased strength to B UE/LE major muscle groups 2. Impaired sitting/standing balance 3. Impaired activity tolerance 4. Shortness of breath 5. R LE pain Impairments are contributing to the following functional limitations: 1. Decline in bed mobility skills 2. Decline in transfer skills 3. Difficulty with ambulation without assistive device and physical assistance 4. Increased completion time for mobility ADL performance 5. Increased risk for falls Goals: Goals X1 week 1. Supine-Sit independent NOT MET 2. Sit-Supine independent NOT MET 3. Sit-Stand independent NOT MET 4. Stand-Sit independent with 4 wheeled walker NOT MET 5. Bed-Chair independent with 4 wheeled walker NOT MET 6. Chair-Bed independent with 4 wheeled walker NOT MET 7. Independent gait on level surface with use of 4 wheeled walker for at least 30 feet without report of pain nor dyspnea NOT MET 8. Independent with home exercise program NOT MET 9. Good static and dynamic standing balance/tolerance NOT MET DISCHARGE RECOMMENDATIONS: Patient will benefit from home health PT services in order to progress mobility level using least restrictive assistive ambulatory device, assess home safety, identify additional equipment needs, and establish a functional maintenance program that will increase ability of patient to remain at home. TREATMENT CODE/TIME: DE Thank you for the opportunity to participate in the care of this patient. Izabela Cordoba PT, DPT, CLT [facility] [place], [place]
[2021-05-09 09:32] LABS: Pyridoxal 5-Phosphate (PLP), P <2 mcg/L (5-50)
== END 2021-05-06 17:09 | disposition designated cancer center or children's hospital (05) | DRG 181 ==
LOC: ER 20:44 → MS 05-03 01:13
PROVIDERS: Family Medicine; Internal Medicine Medical Oncology; Admitting Provider Family Medicine; Emergency Provider Physician Assistant; PCP Family Medicine; Visit Provider Family Medicine
DX: C34.11 Malignant neoplasm of upper lobe, right bronchus or lung (principal); C78.02 Secondary malignant neoplasm of left lung; C79.51 Secondary malignant neoplasm of bone; C79.72 Secondary malignant neoplasm of left adrenal gland; R04.2 Hemoptysis; N40.0 Benign prostatic hyperplasia without lower urinary tract symptoms; F32.9 Major depressive disorder, single episode, unspecified; K58.0 Irritable bowel syndrome with diarrhea; Z87.891 Personal history of nicotine dependence; R43.2 Parageusia; Z20.822 Contact with and (suspected) exposure to COVID-19; Z66 Do not resuscitate; D72.829 Elevated white blood cell count, unspecified
CPT/HCPCS: 36415; 71275; 74177; 80048; 80053; 82805; 87040; 87635; 93005; 94618; 94640; 96361; 96374; 97162; 97530; 99285; 71045; 80202; 81003; 82607; 83605; 83735; 83880; 84207; 84484; 85025; 85379; 85610; 85730; 93010; 99220; 99225; 99233; 99239; J0456; J1200; J2060; J2543; J3480; J3490; J7620

== ENCOUNTER 2021-05-07 11:44 | Outpatient (REF) | payer MEDICARE, MEDICAID, SELFPAY ==
[2021-05-07 12:15] LABS: Abs Immature Grans 0.11 10^3/uL (0.0-0.06); Absolute Basophil Count 0.02 10^3/uL (0.0-0.2); Absolute Eosinophil Count 0.53 10^3/uL (0.0-0.7); Absolute Lymphocyte Count 0.31 10^3/uL (1.2-3.4); Basophils % 0.2; Eosinophils % 4.3; HCT 37.8 % (40.0-50.0); HGB 12.1 g/dL (13.5-17.5); Immature Grans % 0.9; Lymphocytes % 2.5; MCH 29.6 pg (27.0-33.0); MCV 92.4 fL (80-95); MPV 10.2 fL (8.0-11.0); Monocytes % 6.4; Neutrophils % 85.7; Nucleated RBC 0 %; Platelet Count 170 10^3/uL (130-400); RBC 4.09 10^6/uL (4.36-5.78); RDW 13.6 % (11.8-14.1); WBC 12.43 10^3/uL (4.4-10.8)
[2021-05-07 12:16] LABS: Absolute Neutrophil Count 10.65 10^3/uL (1.2-6.7)
[2021-05-07 12:24] LABS: ALT 14 U/L (16-63); AST 13 U/L (15-37); Albumin 1.9 g/dL (3.4-5.0); Alkaline Phosphatase 91 U/L (46-116); Anion Gap 7.9 mmol/L (3-11); BUN 6 mg/dL (7-18); Bilirubin, Total 0.3 mg/dL (0.2-1.0); CO2 29.1 mmol/L (21.0-32.0); CREATININE 0.7 mg/dL (0.70-1.30); Calcium 8.7 mg/dL (8.5-10.1); Chloride 101 mmol/L (98-107); Glucose 123 mg/dL (74-106); Magnesium 1.9 mg/dL (1.8-2.4); Potassium 3.2 mmol/L (3.5-5.1); Sodium 138 mmol/L (136-145); Total Protein 5.2 g/dL (6.4-8.2)
== END 2021-05-07 11:45 | disposition home or self-care (01) ==
LOC: LBN 11:44
PROVIDERS: PCP Family Medicine; Visit Provider Internal Medicine Medical Oncology
DX: C34.11 Malignant neoplasm of upper lobe, right bronchus or lung (principal)
CPT/HCPCS: 36415; 80053; 83735; 85025